=== PATIENT | female | born 1935 | race African-American/Black ===

== ENCOUNTER 2024-10-26 07:49 | Inpatient (IN) | payer MEDICARE, OTHER, SELFPAY ==
[2024-10-23] VITALS (14 sets, daily range): BP systolic 94–185; BP diastolic 64–102; BMI 22.0
--- NOTE | 2024-10-23 16:12 | PTCARENOTE ---
Patient having shooting pains in legs. States walking will alleviate pain. Ambulated around the unit x2 with 2 person assist. Legs feel better. Sitting in recliner awaiting procedure.
--- NOTE | 2024-10-23 18:57 | ITS.CL.PACE ---
Plating Department Helper - Pacemaker Implant
Pacemaker Implant
Procedure Report:
Primary Care Doctor: Rylee Haq DO
Primary Chief Lending Officer: Janusz Butts MD
Procedure Date: 10/23/2024
Name of procedure:
1. Placement of a single-chamber pacemaker with left bundle area pacing lead for conduction system pacing
2. Subclavian venography
History:
1. Patient is a very pleasant 89-year-old female with a past medical history significant for heart failure with preserved ejection fraction, hyperlipidemia, TIA, persistent likely permanent atrial fibrillation, chronic back pain with lumbar
stenosis status post laminectomy, and tachybradycardia syndrome.
2. Please refer to H&P for complete history.
Indication:
Symptomatic bradycardia
Tachybradycardia syndrome
3.3-second pauses associated with above
Recurrent syncope
Methods:
After informed consent was obtained, the patient was brought to the EP laboratory in a postabsorptive, nonsedated state. Peripheral IV access was established. Prophylactic antibiotics were administered prior to incision. Continuous ECG, blood
pressure, and pulse oximetry were initiated. Cardioversion patch electrodes were placed on the patient's chest and back. A grounding patch was applied to the skin. Sedation was administered by anesthesia services.
In order to define the extrathoracic portion of the subclavian vein and exclude significant venous obstruction or anomalous anatomy, subclavian venography was performed prior to the procedure. Using the patient's left peripheral IV, contrast was
injected and images were recorded. The left subclavian vein and SVC were found to be widely patent.
The left chest was prepared and draped in a sterile fashion. A time-out was performed. Local anesthesia was injected in the subcutaneous tissue in the infraclavicular area. An incision was made medial to the deltopectoral groove. The subcutaneous
tissue was dissected the level of the prepectoral fascia. A subcutaneous pocket was created. Under fluoroscopic guidance and with the assistance of the images from the venogram, venipuncture was made using micropuncture and modified Seldinger
technique. This was performed in the extrathoracic portion of the subclavian vein. Guidewire was passed and a peel-away sheath was placed, and used to advance lead into the circulation.
Fluoroscopy was used to determine likely anatomic site for left bundle branch pacing. The Medtronic C315 sheath was used to deliver the Medtronic 3830 Selectsecure pacing lead with the helix exposed just exposed from the sheath tip during continuous
monitoring when pacemapping the septum during gentle clockwise rotation to obtain a paced QRS morphology of a W pattern in lead V1. Once the suspected optimal site was identified, lead deployment was performed with several rapid rotations as paced
QRS morphology was intermittently monitored until a paced QRS complex in lead V1 demonstrated development of an R wave (qR or rSR). Unipolar pacing impedance dropped by approximately 200 ohms suggesting it had reached the left ventricular
subendocardial. Stable VEgm injury current is present throughout lead position and at end of case. Final unipolar pacing impedance is 960 Ohms. Unipolar pacing threshold is stable at 1.0 V @ 0.4 ms. The patient had pre-existing narrow QRS. Final
conduction system paced QRS complex duration is 97 ms, LVAT is 51 ms, and peak V5 -> peak V1 timing is 51 ms. The C315 sheath was slit under fluoroscopy ensuring lead position and stability.
The pocket was flushed with antibiotic solution and hemostasis was assured. The generator was connected to the lead and placed inside the pocket. The device was sutured to the fascia. Antibiotic envelope was used. Floseal was applied. The wound
was closed with 3 running layers of absorbable suture, and steri-strips were applied. Dressing applied over steri-strips in standard fashion.
Following the procedure, the patient was taken to the recovery area in stable condition. A chest x-ray to be obtained post procedure as routine.
Lead parameters and device programming:
- RV Lead (Medtronic, Model 3830, #[id number]): Sensing 5.5 mV, Pacing threshold 0.5 V at 0.4 ms, Imp 790 ohm
- Device: Medtronic, Model W1SR01 pacemaker (#[id number]), programmed VVIR 60�130
Conclusions:
1. Successful placement of a single-chamber pacemaker with conduction system pacing (LBBAP)
2. Subclavian venography
Recommendations:
1. Admit
2. Chest xray bipin thakurlink express in AM
3. IV antibiotics while the patient is admitted.
4. OK to resume home medications as indicated
5. Pressure dressing to be removed in AM, aquacell to remain until wound check
6. Follow-up will be arranged in the office in 7-10 days post-discharge
7. OK to resume OAC 10/26/2024 is patient/site stable
Demarcus Rodriguez DO
Clinical Cardiac Metal Hardener
cc: Rylee Haq DO; Janusz Butts MD
[2024-10-23] MEDS: COZAAR 50 MG PO (20:34)
[2024-10-23] MEDS: TYLENOL 650 MG PO (21:09)
[2024-10-23] MEDS: SEROQUEL PO (21:12)
[2024-10-23] MEDS: SEROQUEL 25 MG PO (21:56)
[2024-10-23] MEDS: NEURONTIN 200 MG PO (22:02)
[2024-10-23] MEDS: ANCEF 5 IV (22:02)
[2024-10-24] VITALS (17 sets, daily range): BP systolic 112–160; BP diastolic 53–105; PULSE 72; O2SAT 100; BMI 21.7
--- NOTE | 2024-10-24 01:30 | PTCARENOTE ---
Rec'd pt as a transfer from EP lab. Pt AAO*3, VSS, and in afib/vpaced rhythm on monitor. pt reported pain in legs and tylenol given as ordered. Pt oriented to unit. Pt and family updated at bedside. Pt and family aware of RUE restriction and
uses of immobilizer. RU chest wall CDI. Pt resting with call olvera in reach. Daughter remains at bedside with patient. Bed alarm on for safety.
[2024-10-24 03:38] LABS: Glucose - Point of Care 195 mg/dl (70-99)
--- NOTE | 2024-10-24 03:50 | W.PN.UPDATE ---
Update Note
Progress Note Update
Rapid response called.
RN reports patient found unresponsive to name or touch, responsive to pain full stimuli only. Patient has her eyes closed, unable to follow commands. noted leg movement. Stable VS, BS 195. Daughter at the bed side, reports she had similar episode on
Monday and didn't respond for 3-4 hours. EKG A-fib
Stroke alert called
RN reported to Neurologist. Neurologist gave verbal order to PIPELINE MAINTENANCE SUPERVISOR.
CT Head w/o contrast
CT Angio Head/Neck w Contrast
ABG stat.
labs
pacemaker placed 10/23
Hx of Dementia
Radiologist noticed results being negative for bleed (CT head) and no occlusion (CT Angio).
Dr. Moreno made aware in AM.
[2024-10-24 03:53] LABS: Hematocrit 38.1 % (37.0-47.0); Hemoglobin 12.4 g/dL (12.0-16.0); Mean Corp Hgb Conc. 32.5 g/dL (33.0-37.0); Mean Corpuscular Hgb 31.3 pg (27.0-31.0); Mean Corpuscular Volume 96.2 fL (81.0-99.0); Mean Platelet Volume 9.8 fL (7.4-10.4); Platelet Count 199 10^3/uL (130-400); Red Blood Cell Count 3.96 10^6/uL (4.20-5.40); Red Cell Dist. Width 13.7 % (11.5-14.5); White Blood Cell Count 6.3 10^3/uL (4.8-10.8)
[2024-10-24 04:03] LABS: Blood Urea Nitrogen 28 mg/dl (7-17); Carbon Dioxide 25 mmol/L (22-30); Chloride 102 mmol/L (98-107); Estimated Creatinine Clearance 25 ml/min; Glucose 176 mg/dl (70-99); Potassium 4.4 mmol/L (3.5-5.1); Sodium 140 mmol/L (135-145); eGFR 48.63
[2024-10-24 04:37] LABS: B.E. -0.2 mmol/L; HCO3 24.8 mmol/L (21-28); O2 Saturation % 98.2 % (94-98); PCO2 41 mmHg (32-35); PO2 103 mmHg (83-108); pH 7.39 (7.35-7.45)
--- NOTE | 2024-10-24 05:16 | RR ---
Addendum entered by Ad Schmitt RN 10/24/24 05:55:
03:32 -Initial assessment with pt being unresponsive.
03:35 - Rapid response initiated.
Original Note:
A Rapid Response was called on this patient, please see Rapid Response form.
RN came in room to assess pt. Pt on TELE monitor in Afib rhythm with pulse in the 80's before entering room. RN attempted to arouse pt for vitals signs. Pt was unresponsive to verbal commands or stimuli. RN gently rubbed pt shoulders, however pt
was still unresponsive to physical stimuli. RN immediately felt for radial and carotid pulses. Carotid pulse noted to be strong and palpable. Radial pulses noted to be strong and palpable. Sternal rub initiated by RN to arouse pt, however, pt
was still unresponsive to physical stimuli. At this time appropriate rapid response team was called. Once rapid response team was activated pt was still unresponsive to verbal and physical stimuli. Pt responsive to pain stimuli with muscle
contraction and twitching. Pt clenching pupils and unable to assess size and congruency.
Pt was previously assessed at 01:35. Pt found to be AAO*3 and following commands at this time.
During rapid response pt's daughter stated that 'pt has been found unresponsive in similar state at home for up to 3 hours.' RN previously did not receive this information in history or from report.
EKG, Vital signs, morning blood work, arterial blood gas, and blood sugar obtained. Pt taken to CT for imaging after being assessed by rapid response team. See rapid response form for full assessment.
Pt brought back to original room and unit. Pt now speaking/mumbling [place] language but still not able to follow commands or conversation.
Left upper chest wall remains with dressing CDI, right arm immobilizer in place. Pt resting with call olvera in reach, olvera alarm active, daughter at bedside, and on TELE monitor.
Plan of care ongoing.
[2024-10-24] MEDS: ANCEF 5 IV (05:37)
--- NOTE | 2024-10-24 07:59 | CON.NEURO ---
Addendum entered and electronically signed by Chioma Martínez MD 10/24/24 17:18:
Brain MRI if PPM is MRI compatible, when able
Original Note:
Consultation
Order
Date of Consultation: 10/24/24
Requesting Provider: Dipika Mike CRNP
Reason for Consult: Unresponsiveness, mental status change
Neurology Consultation Note.
HPI: This is an 89-year-old woman who presented to [facility] on 10-23-2024 for elective pacemaker placement.
Stroke alert was activated at 3:39 am today after the the patient was found unresponsive. VS at that time: 143/67, 78, 96% on room air, afebrile
Labs: Fingerstick�195, creatinine�1.1, normal sodium, PCO2-41.
According to patient's daughter she has experienced multiple 'fainting episodes', with the most recent one occurring before her pacemaker insertion. She has been unresponsive for short durations, with the longest episode lasting a couple of hours.
The patient's family reports that she has been forgetful since a fall and has had difficulty recovering from her back surgery in August,.
The patient has a history of depression which began approximately 12 years ago when her spouse developed dementia. She has been on medication since then, and her son is concerned about a potential addiction to Lorazepam. Ms Renner reports no
complaints. The patient reportedly has been seen at [facility] neurology and was diagnosed with essential tremor within the last 6 months.
According to patient's son Ms. Renner has been quite functional driving and cooking for herself up to June 2024. Her son has been helping with medication administration due to patient's hand tremor limitations over the last 6 months
PDMP:Lorazepam 0.5 Mg 30 tabs filled in on 10/07/2024
EKG(10/23/2024): A-fib
CT head wo contrast�diffuse atrophy
CTA head/neck�no LVO or significant stenosis
MAR: Seroquel 25 mg given on 10/23/24 at 21:56, gabapentin 200 mg given on 10/23/24 at 22:02
PMH: Dementia, A-Fib, SSS, HTN, CHF, MYRIAM
PSH: Lumbar spinal surgery (08/21/2024) PPM(10/23/2024), parathyroidectomy, bilateral cataract surgery
SH:lives with son, originally from [facility], speaks 3 languages, ambulates with a walker as needed, retired teacher, non-smoker, no history of excessive alcohol use
FH: Daughter�tremor
All: Lisinopril
ROS: Limited due to encephalopathy, cooperation.
General: Well developed. In no acute distress.
Cardio: Regular rate . Extremities are without cyanosis or edema.
Neuro:
Mental Status: Alert, oriented to person, 'Traum '. date of was incorrect. Impaired attention and comprehension. Follows simple requests intermittently. Intermittently keep her eyes closed not moving.
Cranial Nerves: Pupils are equally round, surgical. EOMs full. Blinks to threat bilaterally no ptosis. No nystagmus. Face symmetric. Preserved AU. No dysarthria.
Motor: Increased motor tone. All limbs are antigravity symptomatically purposefully
Reflexes: Bilateral grasp Limited exam due to increased motor tone
Sensory: Limited exam due to poor attention
Coordination: Intermittent bilateral resting tremor. Did not cooperate with dysmetria valuation
Gait: deferred
Assessment and Plan:
I. Multifactorial encephalopathy (vascular, toxic, neurodegenerative?.
II. Mood DO, NOS
III. Parkinsonism
-Fall precautions
-Psychiatry consult
-Brain MRI without myriam
-Routine EEG
-B12, TFTs
-Please obtain medical records from [facility] neurology
-Avoid benzodiazepines, anticholinergic medications
-Outpatient neuropsychological evaluation
-Will follow
I personally reviewed all radiology and labs along with past medical records pertinent to current medical problems. Total time spent in patient care is 60 minutes.
Thank you for allowing us to participate in the care of this patient. We will continue to follow. Please do not hesitate to contact us with any questions or concerns.
Subjective/Objective
Subjective Data
Date of Service: October 24, 2024
Objective Data
Vital Signs
Temp Pulse Resp BP Pulse Ox
36.3 C 89 20 143/68 96
10/24/24 07:22 10/24/24 05:45 10/24/24 07:22 10/24/24 05:30 10/24/24 07:22
Lab Results
10/24/24 03:43
10/24/24 03:43
Sodium 140 mmol/L (135-145) 10/24/24 03:43
Potassium 4.4 mmol/L (3.5-5.1) 10/24/24 03:43
BUN 28 mg/dl (7-17) H 10/24/24 03:43
Glucose 176 mg/dl (70-99) H 10/24/24 03:43
Calcium 9.0 mg/dl (8.4-10.2) 10/24/24 03:43
Patient Allergies
lisinopril Allergy (Verified 10/23/24 12:20)
Unknown
Medications
-
Active Medications
Generic Name Dose Route Start Last Admin
Trade Name Freq PRN Reason Stop Dose Admin
Acetaminophen 650 mg 10/23/24 21:00 10/23/24 21:09
Acetaminophen 325 Mg Tablet PO 11/20/24 20:59 650 mg
Q4HPRN PRN Administration
MILD PAIN
Furosemide 20 mg 10/24/24 08:00
Furosemide 20 Mg Tablet PO 11/21/24 07:59
DAILY KRYSTAL
Gabapentin 200 mg 10/23/24 22:00 10/23/24 22:02
Gabapentin 100 Mg Capsule PO 11/20/24 21:59 200 mg
HS KRYSTAL Administration
Losartan Potassium 50 mg 10/23/24 20:00 10/23/24 20:34
Losartan 50 Mg Tablet PO 11/20/24 19:59 50 mg
BID KRYSTAL Administration
Pt's Own ( 500 mg 10/23/24 22:00
Methocarbamol 500 Mg PO 11/20/24 21:59
Tablet) HS KRYSTAL
Paroxetine HCl 10 mg 10/24/24 08:00
Paroxetine 10 Mg Tablet PO 11/21/24 07:59
DAILY KRYSTAL
Quetiapine Fumarate 25 mg 10/23/24 22:00 10/23/24 21:56
Quetiapine 25 Mg Tablet PO 11/20/24 21:59 25 mg
HS KRYSTAL Administration
Sodium Chloride 0 flush 10/23/24 07:00
Sodium Chloride 0.9% (Flush) Syringe IV 11/20/24 06:59
PER PROTOCOL KRYSTAL
Home Medications
�Medication �Instructions �Recorded
apixaban 2.5 mg tablet (Eliquis) 2.5 mg PO BID 10/03/24
calcium carbonate 500 mg PO DAILY 10/03/24
furosemide 20 mg tablet 20 mg PO DAILY 10/03/24
gabapentin 100 mg capsule 200 mg PO HS 10/03/24
losartan 50 mg tablet 50 mg PO BID 10/03/24
methocarbamol 500 mg tablet 500 mg PO HS 10/03/24
multivitamin 1 tab PO NOON 10/03/24
paroxetine HCl 10 mg tablet 10 mg PO DAILY 10/03/24
acetaminophen 500 mg tablet 1,000 mg PO Q6H PRN pain 10/23/24
quetiapine 25 mg tablet (Seroquel) 25 mg PO HS 10/23/24
Vital Signs and Labs
-
Vital Signs and Labs:
Vital Signs
Temp Pulse Resp BP Pulse Ox
36.3 C 93 22 132/56 96
10/24/24 16:42 10/24/24 16:30 10/24/24 16:42 10/24/24 15:09 10/24/24 07:22
Lab Results
10/24/24 03:43
10/24/24 03:43
Sodium 140 mmol/L (135-145) 10/24/24 03:43
Potassium 4.4 mmol/L (3.5-5.1) 10/24/24 03:43
BUN 28 mg/dl (7-17) H 10/24/24 03:43
Glucose 176 mg/dl (70-99) H 10/24/24 03:43
Calcium 9.0 mg/dl (8.4-10.2) 10/24/24 03:43
Medications
-
Medications:
Generic Name Dose Route Start Last Admin
Trade Name Freq PRN Reason Stop Dose Admin
Acetaminophen 650 mg 10/23/24 21:00 10/23/24 21:09
Acetaminophen 325 Mg Tablet PO 11/20/24 20:59 650 mg
Q4HPRN PRN Administration
MILD PAIN
Furosemide 20 mg 10/24/24 08:00 10/24/24 12:03
Furosemide 20 Mg Tablet PO 11/21/24 07:59 20 mg
DAILY KRYSTAL Administration
Gabapentin 200 mg 10/23/24 22:00 10/23/24 22:02
Gabapentin 100 Mg Capsule PO 11/20/24 21:59 200 mg
HS KRYSTAL Administration
Losartan Potassium 50 mg 10/23/24 20:00 10/24/24 12:03
Losartan 50 Mg Tablet PO 11/20/24 19:59 50 mg
BID KRYSTAL Administration
Pt's Own ( 500 mg 10/23/24 22:00
Methocarbamol 500 Mg PO 11/20/24 21:59
Tablet) HS KRYSTAL
Paroxetine HCl 10 mg 10/24/24 08:00 10/24/24 12:03
Paroxetine 10 Mg Tablet PO 11/21/24 07:59 10 mg
DAILY KRYSTAL Administration
Quetiapine Fumarate 25 mg 10/23/24 22:00 10/23/24 21:56
Quetiapine 25 Mg Tablet PO 11/20/24 21:59 25 mg
HS KRYSTAL Administration
Sodium Chloride 0 flush 10/23/24 07:00
Sodium Chloride 0.9% (Flush) Syringe IV 11/20/24 06:59
PER PROTOCOL KRYSTAL
Home Medications
-
Home Medications
apixaban 2.5 mg tablet (Eliquis) 2.5 mg PO BID Blood Clot Prevention/Tx 10/03/24
calcium carbonate 500 mg PO DAILY Supplement 10/03/24
furosemide 20 mg tablet 20 mg PO DAILY Fluid Retention/Swelling 10/03/24
gabapentin 100 mg capsule 200 mg PO HS 10/03/24
losartan 50 mg tablet 50 mg PO BID Blood Pressure 10/03/24
methocarbamol 500 mg tablet 500 mg PO HS 10/03/24
multivitamin 1 tab PO NOON Supplement 10/03/24
paroxetine HCl 10 mg tablet 10 mg PO DAILY Mental Health/Anxiety 10/03/24
acetaminophen 500 mg tablet 1,000 mg PO Q6H PRN pain 10/23/24
quetiapine 25 mg tablet (Seroquel) 25 mg PO HS Mental Health/Anxiety 10/23/24
--- NOTE | 2024-10-24 09:05 | W.PN.CARDCBS ---
Addendum entered and electronically signed by Royal Caraballo MD 10/24/24 09:29:
Agree with ASSOCIATE PROFESSOR OF VIOLIN note and assessment
Agree with ASSOCIATE PROFESSOR OF VIOLIN plan
Patient seen and examined
Events of overnight noted with the rapid response called change in mental status. CT imaging performed and awaiting radiology result. Long discussion with the daughter at the bedside he was from [place] going over here precedent history of
significant decline in her change in mental status since her cervical spinal surgery approximately 2 to 3 months ago and some of these behaviors were noted prior to the pacemaker implantation yesterday by Dr. Awad. At times she is conversant in
her [place] language of [place] and has spoken some words in [place] to my team. When I saw her she was relatively somnolent and mildly arousable and had been that way for a few hours.
Exam:
Pacer site under bandage but clean dry and intact
Chest x-ray reviewed without pneumothorax
Appropriate ventricular pacing and sensing on monitor
Atrial fibrillation underlying
Impression:
Permanent Atrial fibrillation
Tachybradycardia syndrome
Acute change in mental status
TIA 2020
HTN
Hyperlipidemia
chronic HFpEF
Chronic back pain with lumbar laminectomy 09/08
post procedure delirium/hallucination
Plan:
Neuro consultation
Await radiology reading of the imaging
appears comfortable, speaking in both st helenian/[place]er answers some questions appropriately but then starts screaming
I suspect her dementia is somewhat advanced and will need neurology advertising consultant as well as social work nurse consult and help regarding and determining workup and needs
Check UA to r/o infectious source for confusion
site stable, CXR no PTX, tele AFib with occ Vpacing
Holding Eliquis until sat am
Keep immobilizer on today
CM consult
PT/OT eval
Incision check 1 week at [facility]
I would favor observing her another 24 hours prior to discharge so that we can get a formal neurologic consultation and assess any home needs for the patient and family
Original Note:
Today's Communication / Plan
-
post PPM, with post op unresponsiveness and confusion
Impression / Plan
-
Primary Care Doctor: Rylee Haq DO
Primary Movie Theater Usher: Janusz Butts MD
Name of procedure:
1. Placement of a single-chamber pacemaker with left bundle area pacing lead for conduction system pacing
2. Subclavian venography
89-year-old female with a past medical history significant for heart failure with preserved ejection fraction, hyperlipidemia, TIA, persistent likely permanent atrial fibrillation, chronic back pain with lumbar stenosis status post laminectomy, and
tachybradycardia syndrome.
Impression:
Permanent Atrial fibrillation
Tachybradycardia syndrome
Acute change in mental status
TIA 2019
HTN
Hyperlipidemia
chronic HFpEF
Chronic back pain with lumbar laminectomy 09/08
post procedure delirium/hallucination
Plan:
post single chamber PPM 10/23/24
overnight events noted, stroke alert called for unresponsiveness
preliminary CTA head/neck neg for bleed or occlusion
Neuro c/s this am
appears comfortable, speaking in both st helenian/[place] answers some questions appropriately but then starts screaming
unsure baseline dementia
Check UA to r/o infectious source for confusion
site stable, CXR no PTX, tele AFib with occ Vpacing
Holding Eliquis until sat am
Keep immobilizer on today
CM consult
PT/OT eval
Incision check 1 week at [facility]
continue to monitor closely, await Neuro input
Progress Note - Movie Theater Usher
Subjective
Date of Service: October 24, 2024
unable to assess with confusion
Objective
Labs:
10/24/24 03:43
10/24/24 03:43
Labs
Hgb 12.4 g/dL (12.0-16.0) 10/24/24 03:43
Hct 38.1 % (37.0-47.0) 10/24/24 03:43
Plt Count 199 10^3/uL (130-400) 10/24/24 03:43
Sodium 140 mmol/L (135-145) 10/24/24 03:43
Potassium 4.4 mmol/L (3.5-5.1) 10/24/24 03:43
BUN 28 mg/dl (7-17) H 10/24/24 03:43
Creatinine 1.1 mg/dL (0.6-1.0) H 10/24/24 03:43
Glucose 176 mg/dl (70-99) H 10/24/24 03:43
Vital Signs and I&O:
Vital Signs
Temp Pulse Resp BP Pulse Ox
97.4 F 89 20 143/68 96
10/24/24 07:22 10/24/24 05:45 10/24/24 07:22 10/24/24 05:30 10/24/24 07:22
Vital Signs
Temp Pulse Resp BP Pulse Ox
97.4 F 89 20 143 96
10/24/24 07:22 10/24/24 05:45 10/24/24 07:22 10/24/24 05:30 10/24/24 07:22
Intake & Output
10/22/24 10/23/24 10/24/24 10/25/24
06:59 06:59 06:59 06:59
Intake Total 1440 / 1440
Balance 1440 / 1440
Physical Exam
Physical Exam
NAD, AOx1-2, speaking in [place] hel[place], answers some simple questions appropriately
S1, S2, RRR
CTAB, non labored, no wheeze
SNTND bsx4
L CW dressing c/d/i, no HT, pressure dressing removed
[2024-10-24] MEDS: PAXIL 10 MG PO (12:03)
[2024-10-24] MEDS: LASIX 20 MG PO (12:03)
[2024-10-24] MEDS: COZAAR 50 MG PO ×2 (12:03→19:58)
--- NOTE | 2024-10-24 14:09 | PTCARENOTE ---
Pt w/ periods of delirium/dementia. Pt AAO to self. Pt w/ periods of drowsiness. Pt w/ short periods of lucidity. At times of lucidity, pt answers questions appropriately. Discussed plan of care w/ pt's daughter and son. VSS. Will monitor.
--- NOTE | 2024-10-24 14:29 | PTCARENOTE ---
Pt w/o urine output. Bladder scan showed 323 ml of urine in her bladder. At a lucid moment, pt stated that she was going to urinate. Mattie calero initiated, at family request as pt now very somnolent and received lasix. DRILLING FOREMAN aware. Will monitor.
--- NOTE | 2024-10-24 15:05 | CM ---
CM following for DC planning needs.
Met w/ patient at bedside to complete initial assessment. Pt. sleeping soundly. Met w/ son/Royal and dtr./Marissa for collateral information.
Pt. normally resides w/ son, Royal in a private [address] home w/ 2 KAIT. Functionally, patient was indep. prior to her back surgery in 08/2024. She was driving and cooking her meals as of summer 2023.
Family detailed a number of hospital presentations since Aug.
Following back surgery 08/2024, patient was DC'ed to [facility] SNF for x1 wk. Pt. returned to home w/ [facility]. VN following SNF admission.
10/08- presented to ED for delirium; was DCed to home from ED
10/09- presented to ED again for delirium; was admitted and stayed in hospital until 10/15; dx: UTI. Was DC'ed to home w/ [facility]. VN TAMEKA
10/18- presented to ED again for delirium; was DC'ed to home from ED
10/22- presented to ED again; was DC'ed to home from ED
At baseline, patient is ambulatory.
Son resides w/ her. 4 other children; no one else resides closeby but stay occasionally to assist PRN.
Family thinks that patient requires SNF placement prior to return home.
Would not wish to return to [facility], [email or web address]; [facility] are alternative options. Will initiate referrals once PT eval completed.
Even though patient is Recovery level of care, she has had a 3 MN hospitalization in the past 30 d.
Will cont. to follow.
--- NOTE | 2024-10-24 17:00 | PTCARENOTE ---
Pt's delirium seemed to improve after physical therapy. Pt continues to be forgetful, yet more lucid. Pt able to hold good conversation. Will monitor.
[2024-10-24 17:06] LABS: Urine Albumin Trace (Neg - Trace); Urine Bilirubin Negative (Negative); Urine Character Clear (Clear); Urine Color Yellow; Urine Glucose Negative (Negative); Urine Ketone Negative (Negative); Urine Leukocyte Negative (Negative); Urine Nitrite Negative (Negative); Urine Occult Blood Negative (Negative); Urine Urobilinogen Negative (Neg - 1+)
--- NOTE | 2024-10-24 18:58 | EEGC.RPT ---
Continuous EEG Report
Recording
Start Date of Data Reviewed: 10/24/24
Done with Video Recording: Yes
Electrocardiogram: Unremarkable
Report
�
��TECHNICAL REMARKS:��This is a technically satisfactory eighteen channel record employing 21 disc electrodes applied according to a measured international 10-20 electrode placement system.��There were no significant technical difficulties.��The
study was done on a Quartix System.
�
CLINICAL HISTORY: This is an 9-by[id number]-year-old woman with encephalopathy. This study was requested to look for epileptiform abnormalities.
STUDY DURATION: 25 min,�57 secs
REPORT: �At the onset of the EEG, the patient is awake.. The background activity consists of 7�8 hz, impersistent, posteriorly dominant, moderate amplitude, symmetric, and rhythmic activity. Intermittent generalized, 2-3 Hz, 30-50 uV polymorphic
delta activity was seen.� Stepwise intermittent photic stimulation did not induce additional abnormalities. Hyperventilation was not performed. Drowsiness is characterized by low amplitude mixed frequency activity, decreased eye blinking, and muscle
artifact. No epileptiform activity was seen.
�
IMPRESSION: �This is an abnormal awake and drowsy EEG recorded in altered mental status due to a moderate generalized slowing. This findings indicate diffuse cerebral dysfunction, nonspecific in terms of etiology.�
�
[2024-10-24 20:32] LABS: TSH Reflex To Free T4 0.55 uIU/ml (0.47-4.68)
[2024-10-24 20:52] LABS: Vitamin B12 870 pg/ml (239-931)
[2024-10-24] MEDS: TYLENOL 650 MG PO (21:45)
[2024-10-24] MEDS: SEROQUEL 25 MG PO (21:46)
[2024-10-24] MEDS: NEURONTIN 200 MG PO (21:46)
[2024-10-25] VITALS (21 sets, daily range): BP systolic 97–184; BP diastolic 56–136; BMI 21.7
[2024-10-25] MEDS: TYLENOL 650 MG PO ×3 (02:04→21:33)
--- NOTE | 2024-10-25 02:58 | PTCARENOTE ---
Rec'd pt at change of shift. Pt AAO*3, in V-paced rhythm with underlying afib, and VSS. Pt complained of leg pain and Tylenol given as ordered. Pt also reported relief with walking. Pt ambulated around the unit with staff assistance and rolling
walker. Pt and family updated on plan of care, Pt maintained on bed alarm for safety. Pt resting with call olvera in reach and daughter at bedside. Plan of care ongoing.
[2024-10-25] MEDS: TYLENOL PO (06:13)
--- NOTE | 2024-10-25 09:05 | CM ---
Addendum entered by ROMY Saldaña 10/25/24 17:08:
Bed avail. at [facility]. I did alert the son at bedside. He was to discuss w/ his sister.
I [facility] w/ collection systems [phone]. Bed avail. tomorrow, 10/26 if stable.
I then went to meet with patient again at bedside. Dtr. present. Pt. was not responsible and Rapid was called. Was unable to discuss admission to nursing facility given the emergent situation.
Will need to FU on Monday at this time for placement.
Addendum entered by ROMY Saldaña 10/25/24 15:10:
Received responses on the following:
[facility]- no avail. beds.
[facility]no avail[facility] beds
No response from [facility].
Expanded referrals to include: [facility], [facility], Rehab at [facility].
Printed out listing of all facilities within a 10 and then a 15 mile radius of patient's home.
Met w/ dtr. and son at bedside. We reviewed all referrals that have been made. Although family prefers the initial 3 facilities, they are agreeable to expanding search.
group home plan is to return to home w/ son.
Will cont. efforts to arrange SNF placement.
Barrier to DC may be episode of delirium + Recovery status.
Original Note:
Noted PT-OT evaluations.
Referrals made to:
[facility]
Will await responses.
--- NOTE | 2024-10-25 10:06 | W.PN.CARDCBS ---
Addendum entered and electronically signed by Royal Caraballo MD 10/25/24 12:41:
Much more alert today
Patient seen and examined
AF on tele and appropriate V sense/pace.
exam:
much more alert
conversant in zambian and east timorese
sat up and asked to be talked to directly
cor irregular
remainder of exam as per PRELOAD SUPERVISOR note
89-year-old female with a past medical history significant for heart failure with preserved ejection fraction, hyperlipidemia, TIA, persistent likely permanent atrial fibrillation, chronic back pain with lumbar stenosis status post laminectomy, and
tachybradycardia syndrome.
Impression:
Permanent Atrial fibrillation
Tachybradycardia syndrome
Acute change in mental status
TIA 2020
HTN
Hyperlipidemia
chronic HFpEF
Chronic back pain with lumbar laminectomy 09/08
post procedure delirium/hallucination
Plan:
post single chamber PPM 10/23/24
mental status much improved today, sitting out of bed, answers questions appropriately
appreciate neuro input - prefer to avoid MRI for at least 4-6 weeks after new pacemaker, plan for outpt
UA neg, TSH and B12 normal
Psych c/s today to evaluate meds
Pacer site stable, tele AFib with occ Vpacing
Holding Eliquis resume sat am
PT/OT recommended SNF
CM working on bed placement, hopefully today or tomorrow
Incision check 1 week at [facility]
Original Note:
Today's Communication / Plan
-
Appreciate neuro c/s, Psych c/s today for medication adjustments
SNF placement when bed available
Impression / Plan
-
Primary Care Doctor: Rylee Haq,
Primary Mechanical Tech: Janusz Butts MD
Name of procedure:
1. Placement of a single-chamber pacemaker with left bundle area pacing lead for conduction system pacing
2. Subclavian venography
89-year-old female with a past medical history significant for heart failure with preserved ejection fraction, hyperlipidemia, TIA, persistent likely permanent atrial fibrillation, chronic back pain with lumbar stenosis status post laminectomy, and
tachybradycardia syndrome.
Impression:
Permanent Atrial fibrillation
Tachybradycardia syndrome
Acute change in mental status
TIA 2019
HTN
Hyperlipidemia
chronic HFpEF
Chronic back pain with lumbar laminectomy 09/08
post procedure delirium/hallucination
Plan:
post single chamber PPM 10/23/24
mental status much improved today, sitting out of bed, answers questions appropriately
appreciate neuro input - prefer to avoid MRI for at least 4-6 weeks after new pacemaker, possibly plan for outpt
UA neg, TSH and B12 normal
Psych c/s today to evaluate meds
Pacer site stable, tele AFib with occ Vpacing
Holding Eliquis resume sat am
PT/OT recommended SNF
CM working on bed placement, hopefully today or tomorrow
Incision check 1 week at [facility]
Progress Note - Mechanical Tech
Subjective
Date of Service: October 25, 2024
denies pain, sob
Objective
Labs:
10/24/24 03:43
10/24/24 03:43
Labs
Hgb 12.4 g/dL (12.0-16.0) 10/24/24 03:43
Hct 38.1 % (37.0-47.0) 10/24/24 03:43
Plt Count 199 10^3/uL (130-400) 10/24/24 03:43
Sodium 140 mmol/L (135-145) 10/24/24 03:43
Potassium 4.4 mmol/L (3.5-5.1) 10/24/24 03:43
BUN 28 mg/dl (7-17) H 10/24/24 03:43
Creatinine 1.1 mg/dL (0.6-1.0) H 10/24/24 03:43
Glucose 176 mg/dl (70-99) H 10/24/24 03:43
Vital Signs and I&O:
Vital Signs
Temp Pulse Resp BP Pulse Ox
97.6 F 63 18 146/73 97
10/25/24 07:00 10/25/24 03:32 10/25/24 07:00 10/25/24 03:32 10/25/24 07:00
Vital Signs
Temp Pulse Resp BP Pulse Ox
97.6 F 63 18 146/73 97
10/25/24 07:00 10/25/24 03:32 10/25/24 07:00 10/25/24 03:32 10/25/24 07:00
Intake & Output
10/23/24 10/24/24 10/25/24 10/26/24
06:59 06:59 06:59 06:59
Intake Total 1440 / 1440 680 / 680
Output Total 150 / 150
Balance 1440 / 1440 530 / 530
Physical Exam
Physical Exam
NAD< AOX2
S1, S2, irreg irreg
CTAB, non labored
SNTND bsx4
L CW dressing c/d/i no HT, pressure dressing removed
[2024-10-25] MEDS: COZAAR 50 MG PO ×2 (10:19→20:45)
[2024-10-25] MEDS: LASIX PO (10:20)
--- NOTE | 2024-10-25 11:00 | CON.MD ---
Consultation - Medical
-
patient seen chart reviewed. discussed w nursing and with son who was at bedside. patient is an 89 year old woman who underwent ppm placement this admit. she was noted afterward to seem unresponsive but she had not had a stroke and no cause found
ultimately and she returned to usual lof. nursing reported that it almost seemed like she was meditating. when i saw her today she did sit with her eyes closed but it was clear that she followed pretty much everything her son and i said. in fact
although she seemed almost to be dozing she was quite alert and answered all of my ? re orientation appropriately. she denied that she was depressed. she is sometimes anxious and it was for anxiety around the time h that she began taking paxil
and initially ativan o.25 mg which is not now being prescribed. it was just dc'ed and son worries about a wd syndrome although this is a very small dose. son does report mother experienced what he called delirium at times he felt due to tramadol
which she no longer takes and perhaps erratic heart rate prior to ppm implantation. the patient sleeps well when not in pain....she had lamicnectomy and leg pain is still an issue. he feels she deteriorated b/c pain after the back surgery which was
recent although he does see that as getting better too. this was 11.24. patient is NOT suicidal. there is nothing to suggest psychosis. she does have dry mouth presumably from medication effect (paxil and seroquel)
past psych hx no hospitalizations see above re meds
medical hx see above re current medical hx 'parathryoid' in chart not clear whether surgery. hx cataractectomy chf tia hld bun 28 cr 1.1 tsh nl glu 176 b12 and tsh nl
pending mri and eeg ordered cat brain atrophy ctahead and neck see report
fh non contributory
substance abuse none
social resides w son. had six kids one seven grands enjoys gardening and cooking
mse alert ox3 was very still w eyes closed but quite attentive. speech soft normal rate thought process goal oriented no psychosis mood is neutral no si affect appropriate intelligence average insight judgment ok
dx history of recent tme seemingly resolved hx of anxiety in the past
recommendations son is concerned re stopping ativan o.25 mg. this is not usually a big issue as it is a small dose. should simply be monitored. he also is concerned re sedating effects of seroquel and the side effect of paxil which is very
anticholinergic. he feels these were ordered years ago when father went into nh and perhaps she does not need them. suggested halving dose and monitoring for about a month. if she seems stable would dc. would have him consult with pcp. patient's
mental status today seemed pretty good to me. i did not do formal testing which could be done in an out pt setting if concerns re mental status recur psych will sign off
[2024-10-25] MEDS: PAXIL PO (11:17)
[2024-10-25] MEDS: PAXIL 5 MG PO (11:27)
[2024-10-25 17:08] LABS: Glucose - Point of Care 98 mg/dl (70-99)
[2024-10-25] MEDS: ATIVAN 1 MG IV (17:30)
--- NOTE | 2024-10-25 18:13 | HPS.HSE ---
Family Physician
-
Family Physician: Rylee Haq
Chief Complaint
-
tremors/unresponsiveness
History of Present Illness
Patient unable to provide history. History obtained from family (son Royal and daughter Marissa), records, and report from providers (nurse, Drug Safety Coordinator, Neurologist, rapid response team).
89F Essential tremors HFpEF, HLD, TIA, persistent vs permanent afib on Eliquis, chronic back pain, lumbar stenosis laminectomy, tachybrady syndrome, here for pacemaker placement 10/23/24. Hospital course complicated with repeat Rapid Response calls
for episodes of unresponsiveness, shaking, unclear etiology. No acute findings CT Head or CTA Head and Neck. EEG was negative for seizure activity. 10/25/24 as noted in nurse documentation Patient Care Note, patient had become unresponsive while
attempting to get to bedside commode. Patient was placed back in bed and second rapid response this hospitalization was called. During the event patient exhibited tremors each extremity with varying severity, intermittent twitching LUE.
Extremities seemed relatively supple despite shaking. Patient also had persistent conjugate gaze left sided during the event. Ativan was attempted, 0.25 mg IV twice then 0.5 mg IV for a total 1 mg. Patient symptomatically improved after 0.5 mg,
was alert coherent conversant following simple commands. Conjugate gaze had also resolved. Hypertensive, vital signs were otherwise stable throughout event, on room air, no significant desaturation noted. Entire event lasted approx 30 min.
Discussed with primary Cardiology and patient was transferred to Hospitalist service for further evaluation and management. On further discussion with family at bedside, patient was noted to be having 'sundowning' issues since her back surgery Nov
2023. Prior to surgery family reported good ADLs functional driving and cooking for herself. Unresponsive episodes were also noted prior to this hospitalization but family also notes episodes seem to have become more severe within the last week,
especially while she's here.
Medical History
Past Medical History
Past Medical History: Reports Other (as above)
Past Surgical History: Reports Other (as above)
Social History
Unable to obtain full social history at this time due to: Dementia
Family History
Family History: Not pertinent (reviewed)
Allergies / Home Medications
Allergies reflects when Allergies were last updated in [facility].
Home Medications with original date entered in [facility]
Allergy/Medication List:
Allergies
Allergy/AdvReac Type Severity Reaction Status Date / Time
lisinopril Allergy Unknown Verified 10/23/24 12:20
Home Medications
apixaban 2.5 mg tablet (Eliquis) 2.5 mg PO BID Blood Clot Prevention/Tx 10/03/24
calcium carbonate 500 mg PO DAILY Supplement 10/03/24
furosemide 20 mg tablet 20 mg PO DAILY Fluid Retention/Swelling 10/03/24
gabapentin 100 mg capsule 200 mg PO HS 10/03/24
losartan 50 mg tablet 50 mg PO BID Blood Pressure 10/03/24
methocarbamol 500 mg tablet 500 mg PO HS 10/03/24
multivitamin 1 tab PO NOON Supplement 10/03/24
paroxetine HCl 10 mg tablet 10 mg PO DAILY Mental Health/Anxiety 10/03/24
acetaminophen 500 mg tablet 1,000 mg PO Q6H PRN pain 10/23/24
quetiapine 25 mg tablet (Seroquel) 25 mg PO HS Mental Health/Anxiety 10/23/24
Review of Systems
-
Unable to obtain full review of systems at this time due to: Dementia
Physical Exam
Vital Signs
Vital Signs
Temp Pulse Resp BP Pulse Ox
97.7 F 72 16 156/68 95
10/25/24 15:00 10/25/24 15:30 10/25/24 15:00 10/25/24 15:01 10/25/24 15:00
Physical Exam
General: Other (as below)
Laboratory Results
-
10/24/24 03:43
10/24/24 03:43
Laboratory Results
pH 7.39 (7.35-7.45) 10/24/24 04:32
pCO2 41 mmHg (32-35) H 10/24/24 04:32
pO2 103 mmHg (83-108) 10/24/24 04:32
HCO3 24.8 mmol/L (21-28) 10/24/24 04:32
Impression/Plan
-
Physical Exam
General: No pallor, cyanosis, or jaundice.
HEENT: Normocephalic atraumatic, initially fixed left sided conjugate gaze was noted during rapid response event, this since resolved with resolution unresponsiveness EOMI
NECK: Supple. No JVD Carotid Bruits
RESPIRATORY: Lungs clear to auscultation. No crackles wheezes stridor
CVS: Irregularly Irregular. No murmur, rub or gallop.
ABDOMEN: Soft, non-tender. No distension. BS+/normal.
EXTREMITIES: No peripheral cyanosis or edema.
MORTGAGE SERVICING SPECIALIST: following resolution unresponsiveness patient was alert conversant coherent to an extent (some confusion noted) and following simple commands
IMPRESSION:
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 Hospital course complicated with repeat Rapid Response
calls for episodes of unresponsiveness, shaking, unclear etiology. No acute findings CT Head or CTA Head and Neck. EEG was negative for seizure activity. Patient evaluated by Psychiatry and Neurology consults. Following 2nd rapid response,
patient was transferred from Cardiology to Hospitalist service for further evaluation and management.
PLAN:
#Episodes Unresponsiveness/Shaking unclear etiology, suspected Dementia Delirium
#History Depression/Depression
As per discussion with Neurology, Low suspicion seizure activity, possible hyperactive delirium (treatable with ativan but also carries a risk of worsening delirium overall)
Would continue to hold scheduled ativan (reportedly was on 0.25 mg HS previously, very low dose, unlikely to trigger withdrawal sz's, has been off this medication for days)
Psych eval appreciated
Neuro eval appreciated hold paroxetine and Seroquel given concern possible Lewy Body Dementia
PT/OT eval appreciated SNF rehab but patient may do better in a familiar event Home with 08/05 care if possible.
#Tachybrady syndrome s/p ppm
Cardio eval appreciated
cont care as per Cardio
#persistent vs permanent afib
Eliquis to resume 10/26/24 morning as per Cardio
#HFpEF
appears euvolemic at this time
cont home Lasix
#HTN
cont home Losartan
#Lumbar stenosis Laminectomy Aug 2024
cont home Gabapentin
Methocarbamol not given here (patient's own med), would also consider discontinuing given anticholinergic concerns possible contribution delirium as above
Full Code
I spent a total of 80 minutes with the patient or on the floor. More than 50% of this time involved counseling and coordination of care.
--- NOTE | 2024-10-25 18:21 | RR ---
A Rapid Response was called on this patient, please see Rapid Response form.
--- NOTE | 2024-10-25 18:21 | PTCARENOTE ---
pt attempted to get to bsc went unresponsive and was placed back into bed. RN was called to room, sternal rubbed pt. rn checked pulse. pt continued to be afib/paced on the monitor. rapid response called. bp was 166/76, notified dr. coleman/
hospitalist. Ativan given at bedside per order, see documentation. after about a half hour, pt started to arouse. pt was able to answer who, what and where she is. family educated at bedside. call olvera in place. bed alarm continues to be on for
safety.
--- NOTE | 2024-10-25 18:38 | W.PN.NEURO.1 ---
Today's Communication / Plan
-
.
Subjective/Objective
Subjective Data
Date of Service: October 25, 2024
Neurology follow-up note.
According to patient's daughter her mom had an episode presented with behavioral arrest with associated eye closure after standing when she was transferred to a commode. Her symptoms lasted for several minutes before she was assisted to bed
VS during the event: 166/121, 83, fingerstick�98.
Ms. Renner received lorazepam for reported gaze preference(unclear side, dose is not documented in MAR). Ms. Renner has had ongoing bilateral upper and lower extremity resting tremor.
Routine EEG (10/24/2024)-generalized slowing, no epileptiform activity
PMH: Dementia, A-Fib, SSS, HTN, CHF, MYRIAM
PSH: Lumbar spinal surgery (08/21/2024) PPM(10/23/2024), parathyroidectomy, bilateral cataract surgery
SH:lives with son, originally from [facility], speaks 3 languages, ambulates with a walker as needed, retired teacher, non-smoker, no history of excessive alcohol use
FH: Daughter�tremor
All: Lisinopril
ROS: Limited due to encephalopathy, cooperation.
No lip injury.
General: Restless, trying to get out of the bed
Cardio: Regular rate . Extremities are without cyanosis or edema.
Neuro:
Mental Status: Awake, does not attend. Intermittent dysarthric speech
Cranial Nerves:
Motor: Increased motor tone. All limbs are antigravity symptomatically purposefully
Reflexes: Bilateral grasp Limited exam due to increased motor tone
Sensory: Limited exam due to poor attention
Coordination: bilateral resting tremor.
Reflexes: Bilateral grasp
Gait: deferred
Assessment and Plan:
I. Behavioral arrest multifactorial encephalopathy
II. Multifactorial encephalopathy, hyperactive delirium
III. Parkinsonism, LBD?
-Please obtain orthostatic vital signs.
-Psychiatry consult
-Please check CBC, metabolic panel,
-Please obtain medical records from [facility] neurology
-Avoid benzodiazepines, dopamine blockers, anticholinergic medications
-The case was discussed with patient's children and medical personnel
I personally reviewed all radiology and labs along with past medical records pertinent to current medical problems. Total time spent in patient care is 45 minutes.
Thank you for allowing us to participate in the care of this patient. We will continue to follow. Please do not hesitate to contact us with any questions or concerns.
Objective Data
Vital Signs
Temp Pulse Resp BP Pulse Ox
36.5 C 76 16 131/56 95
10/25/24 15:00 10/25/24 18:15 10/25/24 15:00 10/25/24 18:15 10/25/24 15:00
Lab Results
10/24/24 03:43
10/24/24 03:43
Sodium 140 mmol/L (135-145) 10/24/24 03:43
Potassium 4.4 mmol/L (3.5-5.1) 10/24/24 03:43
BUN 28 mg/dl (7-17) H 10/24/24 03:43
Glucose 176 mg/dl (70-99) H 10/24/24 03:43
Calcium 9.0 mg/dl (8.4-10.2) 10/24/24 03:43
Vitamin B12 870 pg/ml (239-931) 10/24/24 03:43
Patient Allergies
lisinopril Allergy (Verified 10/23/24 12:20)
Unknown
Vital Signs and Labs
-
Vital Signs and Labs:
Vital Signs
Temp Pulse Resp BP Pulse Ox
36.5 C 76 16 131/56 95
10/25/24 15:00 10/25/24 18:15 10/25/24 15:00 10/25/24 18:15 10/25/24 15:00
Lab Results
10/24/24 03:43
10/24/24 03:43
Sodium 140 mmol/L (135-145) 10/24/24 03:43
Potassium 4.4 mmol/L (3.5-5.1) 10/24/24 03:43
BUN 28 mg/dl (7-17) H 10/24/24 03:43
Glucose 176 mg/dl (70-99) H 10/24/24 03:43
Calcium 9.0 mg/dl (8.4-10.2) 10/24/24 03:43
Vitamin B12 870 pg/ml (239-931) 10/24/24 03:43
Medications
-
Medications:
Generic Name Dose Route Start Last Admin
Trade Name Freq PRN Reason Stop Dose Admin
Acetaminophen 650 mg 10/23/24 21:00 10/25/24 11:30
Acetaminophen 325 Mg Tablet PO 11/20/24 20:59 650 mg
Q4HPRN PRN Administration
MILD PAIN
Apixaban 2.5 mg 10/26/24 08:00
Apixaban (Eliquis) 2.5 Mg Tablet PO 11/23/24 07:59
BID KRYSTAL
Furosemide 20 mg 10/24/24 08:00 10/25/24 10:20
Furosemide 20 Mg Tablet PO 11/21/24 07:59 Not Given
DAILY KRYSTAL
Gabapentin 200 mg 10/23/24 22:00 10/24/24 21:46
Gabapentin 100 Mg Capsule PO 11/20/24 21:59 200 mg
HS KRYSTAL Administration
Losartan Potassium 50 mg 10/23/24 20:00 10/25/24 10:19
Losartan 50 Mg Tablet PO 11/20/24 19:59 50 mg
BID KRYSTAL Administration
Pt's Own ( 500 mg 10/23/24 22:00
Methocarbamol 500 Mg PO 11/20/24 21:59
Tablet) HS KRYSTAL
Paroxetine HCl 5 mg 10/25/24 11:14 10/25/24 11:27
Paroxetine 10 Mg Tablet PO 11/22/24 11:13 5 mg
DAILY KRYSTAL Administration
Quetiapine Fumarate 12.5 mg 10/25/24 11:00
Quetiapine 25 Mg Tablet PO 11/20/24 21:59
HS KRYSTAL
Sodium Chloride 0 flush 10/23/24 07:00
Sodium Chloride 0.9% (Flush) Syringe IV 11/20/24 06:59
PER PROTOCOL KRYSTAL
Home Medications
-
Home Medications
apixaban 2.5 mg tablet (Eliquis) 2.5 mg PO BID Blood Clot Prevention/Tx 10/03/24
calcium carbonate 500 mg PO DAILY Supplement 10/03/24
furosemide 20 mg tablet 20 mg PO DAILY Fluid Retention/Swelling 10/03/24
gabapentin 100 mg capsule 200 mg PO HS 10/03/24
losartan 50 mg tablet 50 mg PO BID Blood Pressure 10/03/24
methocarbamol 500 mg tablet 500 mg PO HS 10/03/24
multivitamin 1 tab PO NOON Supplement 10/03/24
paroxetine HCl 10 mg tablet 10 mg PO DAILY Mental Health/Anxiety 10/03/24
acetaminophen 500 mg tablet 1,000 mg PO Q6H PRN pain 10/23/24
quetiapine 25 mg tablet (Seroquel) 25 mg PO HS Mental Health/Anxiety 10/23/24
--- NOTE | 2024-10-25 18:59 | W.PN.UPDATE ---
Update Note
Progress Note Update
Rapid response called this afternoon for an episode of change in mental status and altered sensorium. She was unresponsive and found by nursing and a rapid response was called. Daughter and brother were at the bedside. They asked whether this was
Ativan withdrawal causing the symptoms. Vital sign assessment including oxygenation blood pressure and pulse demonstrated relatively stable vital signs. I took a history from the brother and it sounds like she has had some dementia type symptoms
with ing for 3 to 6 months. For 3 weeks she has had waxing waning mental status and for approximately 1 week she has had unresponsiveness spells. She is is the second spell she has had here in the hospital with rapid responses called for
each. The post procedure Monday evening rapid response led to imaging, EEG, neurology consultation, psychiatry consultation, PT OT, social media specialist evaluations. When I saw her this morning she was awake and conversant in both Estonian and Albanian
but then this afternoon had another change in mental status. I immediately called the internal medicine�hospitalist team when I was notified by nursing about the rapid response. Although I was in the office I came over to evaluate patient and
hospitalist team with Dr. Mayer was already at the bedside. He did give her some Ativan which appeared to improve her sensorium and internal medicine and neurology teams were at the bedside evaluating patient. I did discuss with daughter and son
that we will continue our workup and it is hard to know timeframe of improvement. First I do believe we need to make a diagnosis for these unresponsive episodes and workup is ongoing.
We will continue to follow the patient closely from a cardiology perspective and internal medicine team will except the patient as primary attending with neurology, psychiatry, and cardiology consultation. With regards to her pacemaker there is
appropriate ventricular sensing and pacing on telemetry and we were preparing to start oral anticoagulation tomorrow morning as she is in permanent atrial fibrillation. There was no bleeding on cranial imaging from Monday evening and I will
defer to the primary team with regards to further workup and imaging. Unless there is a contraindication we will plan to start oral anticoagulation tomorrow morning October 26.
I also made Dr. Butts her outpatient oil filters inspector aware of events of the hospitalization.
[2024-10-25] MEDS: NEURONTIN 200 MG PO (20:45)
[2024-10-25] MEDS: SEROQUEL 12.5 MG PO (20:45)
[2024-10-26] VITALS (7 sets, daily range): BP systolic 119–185; BP diastolic 47–83; BMI 21.8
[2024-10-26 05:22] LABS: Hemoglobin 11.4 g/dL (12.0-16.0); Mean Corp Hgb Conc. 32.6 g/dL (33.0-37.0); Mean Corpuscular Hgb 31.8 pg (27.0-31.0); Mean Corpuscular Volume 97.5 fL (81.0-99.0); Mean Platelet Volume 10.3 fL (7.4-10.4); Platelet Count 172 10^3/uL (130-400); Red Blood Cell Count 3.59 10^6/uL (4.20-5.40); Red Cell Dist. Width 14.1 % (11.5-14.5); White Blood Cell Count 5.8 10^3/uL (4.8-10.8)
[2024-10-26 05:27] LABS: APTT 31.8 Sec (23.4-35.0)
--- NOTE | 2024-10-26 05:32 | PTCARENOTE ---
patient slept on and off overnight. daughter at the bedside. bed alarm for safety. neuro assessment wax and weans. lucid, appropriately conversation at times. speaking bengali/creole at times. patient keeps eyes closed at times. will follow commands.
ambulating with the walker; standby assist-uncooperative with directions. Afib on tele with pacing, 70s-90s. bp stable. L chest site CDI. reinforced activity restrictions to patient and family. call olvera within reach.
[2024-10-26 05:40] LABS: ALT (SGPT) 18 U/L (0-35); AST (SGOT) 42 U/L (14-36); Albumin 3.6 g/dl (3.5-5.0); Alkaline Phosphatase 81 U/L (38-126); Blood Urea Nitrogen 26 mg/dl (7-17); Calcium 8.9 mg/dl (8.4-10.2); Carbon Dioxide 31 mmol/L (22-30); Chloride 103 mmol/L (98-107); Estimated Creatinine Clearance 30 ml/min; Glucose 96 mg/dl (70-99); Magnesium 2.4 mg/dl (1.6-2.3); Phosphorus 3.7 mg/dl (2.5-4.5); Potassium 4.1 mmol/L (3.5-5.1); Sodium 141 mmol/L (135-145); Total Bilirubin 0.6 mg/dl (0.2-1.3); Total Protein 6.2 g/dl (6.3-8.2); eGFR > 60.00
--- NOTE | 2024-10-26 07:40 | W.PN.HOSP.TC ---
Today's Communication/Plan
-
limit external stimuli as possible
start keppra and avoid benzo, antipsychotics, anticholinergic medications as per Neuro
IVF gentle hydration if not eating, ok to dc if able to tolerate oral diet
Pain control, lidocaine patches lower back, increased gabapentin, scheduled Tylenol Q4HWA
Resume Eliquis as per Cardio
Assessment / Plan
Assessment / Plan
Physical Exam
General: No pallor, cyanosis, or jaundice.
HEENT: Normocephalic atraumatic
NECK: Supple. No JVD Carotid Bruits
RESPIRATORY: Lungs clear to auscultation. No crackles wheezes stridor
CVS: Irregularly Irregular. No murmur, rub or gallop.
ABDOMEN: Soft, non-tender. No distension. BS+/normal.
EXTREMITIES: No peripheral cyanosis or edema.
BASKET OPERATOR: Fluctuating mental status throughout day
IMPRESSION:
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 Hospital course complicated with repeat Rapid Response
calls for episodes of unresponsiveness, shaking, unclear etiology. No acute findings CT Head or CTA Head and Neck. EEG was negative for seizure activity. Patient evaluated by Psychiatry and Neurology consults. Following 2nd rapid response,
patient was transferred from Cardiology to Hospitalist service for further evaluation and management.
PLAN:
#Episodes Unresponsiveness/Shaking unclear etiology, suspect Dementia Delirium exacerbated by Medications (benzos, antipsychotics, anticholinergic)
#History Depression/Depression
Per discussion with patient's son Royal, sports psychologist, confusion episodes first started following laminectomy lumbar stenosis Aug 2024, around the same time patient was started on methocarbamol (very anticholinergic, in combination with pt's home
medications paroxetine and bedtime ativan, suspect polypharmacy likely triggered confusion episodes/delirium)
As per discussion with Neurology, Low suspicion seizure activity, possible hyperactive delirium (treatable with ativan but also carries a risk of worsening delirium overall)
Would continue to hold scheduled ativan (reportedly was on 0.25 mg HS previously, very low dose, unlikely to trigger withdrawal sz's, has been off this medication for a few days)
Psych eval appreciated
Neuro eval appreciated hold paroxetine and Seroquel given concern possible Lewy Body Dementia, started on low dose Keppra for possible sz d/o
PT/OT eval appreciated SNF rehab but patient may do better in a familiar event Home with / care if possible.
Limit external stimuli as much as possible.
#Tachybrady syndrome s/p ppm
Cardio eval appreciated
#persistent vs permanent afib
Eliquis resumed, cont
#HFpEF
appears euvolemic at this time
Given poor oral intake d/t confusion/encephalopathy/delirium, Lasix discontinued, monitor off
#HTN
cont home Losartan
#Lumbar stenosis Laminectomy Aug 2024
Possible pain contributing to delirium
cont home Gabapentin dose increased to 300 mg TID as per Neuro
Methocarbamol not given here (patient's own med), would also consider discontinuing given anticholinergic concerns possible contribution delirium as above
Notably, the start of methocarbamol also coincides with the start of patient's 'ing'- started following Laminectomy as per patient's son Royal
Scheduled Tylenol Q4HWA
Lidocaine patches lower back
Full Code
GI ppx Protonix
Discussed with patient's daughter Marissa and patient's son Royal
I spent a total of 50 minutes with the patient or on the floor. More than 50% of this time involved counseling and coordination of care.
Anticipated Discharge: 24 - 48 hours
Subjective/Interval History
-
Date of Service: October 26, 2024
Intermittent episodes confusion unresponsiveness agitation persists. Overall seems to be improving as day progresses however. See nurse patient care note 10/26/24 18:57
Objective Data
-
Labs:
Laboratory Results
10/26/24
04:56
WBC 5.8
Hgb 11.4 L
Hct 35.0 L
Plt Count 172
APTT 31.8
Sodium 141
Potassium 4.1
Chloride 103
Carbon Dioxide 31 H
BUN 26 H
Creatinine 0.9
Glucose 96
Calcium 8.9
Total Bilirubin 0.6
AST 42 H
ALT 18
Alkaline Phosphatase 81
Vital Signs:
Vital Signs
Temp Pulse Resp BP Pulse Ox
97.8 F 88 16 136/66 99
10/26/24 04:46 10/26/24 05:15 10/26/24 07:31 10/26/24 04:46 10/26/24 07:31
I&O
10/25/24 10/26/24 10/27/24
06:59 06:59 06:59
Intake Total 680 / 680 490 / 490
Output Total 150 / 150
Balance 530 / 530 490 / 490
--- NOTE | 2024-10-26 09:35 | W.PN.CARDCBS ---
Today's Communication / Plan
-
Appreciate IM input
Appreciate psychiatry input
Appreciate neurology input
Pacemaker stable
Resuming oral anticoagulation today
Discussed with daughter the plan at bedside
Outpatient wound check is already made
We will sign off
Workup ongoing for her neurologic status and likely SNF at discharge
Impression / Plan
-
Primary Care Doctor: Rylee Haq DO
Primary Livestock Buyer: Janusz Butts MD
Name of procedure:
1. Placement of a single-chamber pacemaker with left bundle area pacing lead for conduction system pacing
2. Subclavian venography
89-year-old female with a past medical history significant for heart failure with preserved ejection fraction, hyperlipidemia, TIA, persistent likely permanent atrial fibrillation, chronic back pain with lumbar stenosis status post laminectomy, and
tachybradycardia syndrome.
Impression:
Permanent Atrial fibrillation
Tachybradycardia syndrome
Acute change in mental status
TIA 2020
HTN
Hyperlipidemia
chronic HFpEF
Chronic back pain with lumbar laminectomy 09/08
post procedure delirium/hallucination
Plan:
post single chamber PPM 10/23/24 with endocardial lead
Events of the last 24 hours noted. Second rapid response yesterday in the evening and I evaluated the patient at bedside with internal medicine and neurology.
Ongoing discussions with family regarding her preimplant neurologic status and post implant options
Appreciate internal medicine�hospitalist team and Dr. Mayer's evaluation at bedside and they are now the primary service
appreciate neuro input - prefer to avoid MRI for at least 4-6 weeks after new pacemaker, possibly plan for outpt
UA neg, TSH and B12 normal
Appreciate psychiatry consult
Pacer site stable, tele AFib with occ Vpacing.
Resuming Eliquis today
PT/OT recommended SNF and options are being researched
CM working on bed placement, hopefully early next week
Incision check 1 week at [facility] which is already arranged
We will sign off for now please call with further questions if there is any other cardiology related issues that we can answer for medical teams were for the family
Progress Note - Livestock Buyer
Subjective
Date of Service: October 26, 2024
Events noted
Objective
Labs:
10/26/24 04:56
10/26/24 04:56
Labs
Hgb 11.4 g/dL (12.0-16.0) L 10/26/24 04:56
Hct 35.0 % (37.0-47.0) L 10/26/24 04:56
Plt Count 172 10^3/uL (130-400) 10/26/24 04:56
APTT 31.8 Sec (23.4-35.0) 10/26/24 04:56
Sodium 141 mmol/L (135-145) 10/26/24 04:56
Potassium 4.1 mmol/L (3.5-5.1) 10/26/24 04:56
BUN 26 mg/dl (7-17) H 10/26/24 04:56
Creatinine 0.9 mg/dL (0.6-1.0) 10/26/24 04:56
Glucose 96 mg/dl (70-99) 10/26/24 04:56
Vital Signs and I&O:
Vital Signs
Temp Pulse Resp BP Pulse Ox
97.8 F 63 16 119/52 99
10/26/24 04:46 10/26/24 07:31 10/26/24 07:31 10/26/24 07:31 10/26/24 07:31
Vital Signs
Temp Pulse Resp BP Pulse Ox
97.8 F 63 16 119/52 99
10/26/24 04:46 10/26/24 07:31 10/26/24 07:31 10/26/24 07:31 10/26/24 07:31
Intake & Output
10/24/24 10/25/24 10/26/24 10/27/24
06:59 06:59 06:59 06:59
Intake Total 1440 / 1440 680 / 680 490 / 490
Output Total 150 / 150
Balance 1440 / 1440 530 / 530 490 / 490
Physical Exam
Physical Exam
Physical Exam
General: More awake and alert
Neck: supple. no meningeal signs. normal psoterior pharynx
Heart: Left-sided pacer site clean dry and intact. Cor irregularly irregular
Lungs: no acute respiratory distress. clear bilaterally
Abdomen: normal bowel sounds. not tender. no CVAT
Neuro: Neurologic issue stable with waxing and waning sensorium
Skin: no rash
Psychiatric: Psychiatric issues stable
Extremities: no edema. no calf tenderness. negative homans. good distal pulses
[2024-10-26] MEDS: LASIX PO (09:48)
[2024-10-26] MEDS: OFIRMEV 100 IV (11:08)
[2024-10-26] MEDS: LIDOCAINE 4% PATCH 2 PATCH TOPICAL (11:30)
[2024-10-26] MEDS: PROTONIX IV 40 MG IV (11:30)
[2024-10-26] MEDS: NSS (PRESERVATIVE FREE) 10 ML IV (11:30)
[2024-10-26] MEDS: TORADOL 15 MG IV (11:31)
[2024-10-26] MEDS: NSS 1000 IV (12:35)
[2024-10-26] MEDS: ELIQUIS 2.5 MG PO ×2 (13:20→22:18)
[2024-10-26] MEDS: COZAAR 50 MG PO ×2 (13:20→22:18)
--- NOTE | 2024-10-26 16:05 | W.PN.NEURO.1 ---
Today's Communication / Plan
-
.
Subjective/Objective
Subjective Data
Date of Service: October 26, 2024
Neurology follow-up note.
Routine EEG (10/24/2024)-generalized slowing, no epileptiform activity.
Ms. Renner endorses bilateral lower leg pain.
According to medical personnel patient was not responding to his tactile wrap at 9:30 AM today. Her blood pressure at that time was 178/78. The patient was given Seroquel 12.5 mg on 10/25/24 at 20:45.
She was reportedly awake and verbal prior to the morning episode.
PMH: Dementia, A-Fib, SSS, HTN, CHF, MYRIAM
PSH: Lumbar spinal surgery (08/21/2024) PPM(10/23/2024), parathyroidectomy, bilateral cataract surgery
SH:lives with son, originally from [facility], speaks 3 languages, ambulates with a walker as needed, retired teacher, non-smoker, no history of excessive alcohol use
FH: Daughter�tremor
All: Lisinopril
ROS: Positive for leg pain
General: Restless, trying to get out of the bed
Cardio: Regular rate . Extremities are without cyanosis or edema.
Neuro:
Mental Status: Awake, oriented to name. Poor attention. Fluctuating mood. Perseverates.
Cranial Nerves:
Motor: Increased motor tone. All limbs are antigravity symptomatically purposefully
Reflexes: Bilateral grasp Limited exam due to increased motor tone
Sensory: Limited exam due to poor attention
Coordination: bilateral resting tremor.
Reflexes: Bilateral grasp
Gait: deferred
Tenderness on the lower leg tactile stimuli
Assessment and Plan:
I. Behavioral arrest multifactorial encephalopathy
II. Multifactorial encephalopathy, hyperactive delirium
III. Parkinsonism, LBD?
IV. AFib off AC
-Please obtain lower extremity venous Doppler ultrasound (the patient has not had Eliquis over the last 3 days)
-Psychiatry consult
-Start low-dose of Keppra
-Routine EEG
-Please page neurology service if additional episodes of unresponsiveness should occur
-Please obtain medical records from [facility] neurology
-Avoid benzodiazepines, dopamine blockers, anticholinergic medications
-The case was discussed with patient's children and medical personnel
I personally reviewed all radiology and labs along with past medical records pertinent to current medical problems. Total time spent in patient care is 45 minutes.
Thank you for allowing us to participate in the care of this patient. We will continue to follow. Please do not hesitate to contact us with any questions or concerns
Objective Data
Vital Signs
Temp Pulse Resp BP Pulse Ox
36.6 C 82 16 185/83 99
10/26/24 04:46 10/26/24 13:20 10/26/24 07:31 10/26/24 13:20 10/26/24 07:31
Lab Results
10/26/24 04:56
10/26/24 04:56
APTT 31.8 Sec (23.4-35.0) 10/26/24 04:56
Sodium 141 mmol/L (135-145) 10/26/24 04:56
Potassium 4.1 mmol/L (3.5-5.1) 10/26/24 04:56
BUN 26 mg/dl (7-17) H 10/26/24 04:56
Glucose 96 mg/dl (70-99) 10/26/24 04:56
Calcium 8.9 mg/dl (8.4-10.2) 10/26/24 04:56
Phosphorus 3.7 mg/dl (2.5-4.5) 10/26/24 04:56
Vitamin B12 870 pg/ml (239-931) 10/24/24 03:43
Patient Allergies
lisinopril Allergy (Verified 10/23/24 12:20)
Unknown
Vital Signs and Labs
-
Vital Signs and Labs:
Vital Signs
Temp Pulse Resp BP Pulse Ox
36.6 C 82 16 185/83 99
10/26/24 04:46 10/26/24 13:20 10/26/24 07:31 10/26/24 13:20 10/26/24 07:31
Lab Results
10/26/24 04:56
10/26/24 04:56
APTT 31.8 Sec (23.4-35.0) 10/26/24 04:56
Sodium 141 mmol/L (135-145) 10/26/24 04:56
Potassium 4.1 mmol/L (3.5-5.1) 10/26/24 04:56
BUN 26 mg/dl (7-17) H 10/26/24 04:56
Glucose 96 mg/dl (70-99) 10/26/24 04:56
Calcium 8.9 mg/dl (8.4-10.2) 10/26/24 04:56
Phosphorus 3.7 mg/dl (2.5-4.5) 10/26/24 04:56
Vitamin B12 870 pg/ml (239-931) 10/24/24 03:43
Medications
-
Medications:
Generic Name Dose Route Start Last Admin
Trade Name Freq PRN Reason Stop Dose Admin
Acetaminophen 650 mg 10/23/24 21:00 10/25/24 21:33
Acetaminophen 325 Mg Tablet PO 11/20/24 20:59 650 mg
Q4HPRN PRN Administration
MILD PAIN
Apixaban 2.5 mg 10/26/24 08:00 10/26/24 13:20
Apixaban (Eliquis) 2.5 Mg Tablet PO 11/23/24 07:59 2.5 mg
BID KRYSTAL Administration
Gabapentin 200 mg 10/26/24 16:00
Gabapentin 100 Mg Capsule PO 11/23/24 15:59
TID KRYSTAL
Hydralazine HCl 5 mg 10/26/24 11:00
Hydralazine 20 Mg/Ml Vial IV 11/23/24 10:59
Q4HPRN PRN
SBP>160 or DBP>100
Sodium Chloride 1,000 mls @ 70 mls/hr 10/26/24 12:15 10/26/24 12:35
Nss IV 1,000 mls
[id number] KRYSTAL Administration
Levetiracetam 500 mg 10/26/24 20:00
Levetiracetam 500 Mg Regular Release Tablet PO 11/23/24 19:59
BID KRYSTAL
Lidocaine 2 patch 10/26/24 11:00 10/26/24 11:30
Lidocaine 4% Topical Patch TOPICAL 11/23/24 10:59 2 patch
DAILY KRYSTAL Administration
Protocol
Losartan Potassium 50 mg 10/23/24 20:00 10/26/24 13:20
Losartan 50 Mg Tablet PO 11/20/24 19:59 50 mg
BID KRYSTAL Administration
Pantoprazole Sodium 40 mg 10/26/24 12:00 10/26/24 11:30
Pantoprazole Sodium 40 Mg/10 Ml Vial IV 11/23/24 11:59 40 mg
DAILY KRYSTAL Administration
Paroxetine HCl 5 mg 10/25/24 11:14 10/25/24 11:27
Paroxetine 10 Mg Tablet PO 11/22/24 11:13 5 mg
DAILY KRYSTAL Administration
Patch Removal 0 patch 10/26/24 20:00
Remove Lidocaine Patch REMOVE 11/23/24 19:59
DAILY@2000 KRYSTAL
Quetiapine Fumarate 12.5 mg 10/25/24 11:00 10/25/24 20:45
Quetiapine 25 Mg Tablet PO 11/20/24 21:59 12.5 mg
HS KRYSTAL Administration
Sodium Chloride 0 flush 10/23/24 07:00
Sodium Chloride 0.9% (Flush) Syringe IV 11/20/24 06:59
PER PROTOCOL KRYSTAL
Sodium Chloride 10 ml 10/26/24 12:00 10/26/24 11:30
Sodium Chloride 0.9% (Preservative Free) 10 Ml Vial IV 11/23/24 11:59 10 ml
DAILY KRYSTAL Administration
Home Medications
-
Home Medications
apixaban 2.5 mg tablet (Eliquis) 2.5 mg PO BID Blood Clot Prevention/Tx 10/03/24
calcium carbonate 500 mg PO DAILY Supplement 10/03/24
furosemide 20 mg tablet 20 mg PO DAILY Fluid Retention/Swelling 10/03/24
gabapentin 100 mg capsule 200 mg PO HS Neurological Condition 10/03/24
losartan 50 mg tablet 50 mg PO BID Blood Pressure 10/03/24
methocarbamol 500 mg tablet 500 mg PO HS Muscle Spasms 10/03/24
multivitamin 1 tab PO NOON Supplement 10/03/24
paroxetine HCl 10 mg tablet 10 mg PO DAILY Mental Health/Anxiety 10/03/24
acetaminophen 500 mg tablet 1,000 mg PO Q6H PRN pain 10/23/24
quetiapine 25 mg tablet (Seroquel) 25 mg PO HS Mental Health/Anxiety 10/23/24
[2024-10-26] MEDS: NEURONTIN 300 MG PO ×2 (17:06→22:18)
[2024-10-26 17:58] LABS: Erythrocyte Sed Rate 16 mm/hour (0-20)
[2024-10-26 18:05] LABS: Iron 55 ug/dl (37-170); Uric Acid 4.7 mg/dl (2.5-6.2)
[2024-10-26 18:11] LABS: C-Reactive Protein < 5.00 mg/L (0.0-10.00)
--- NOTE | 2024-10-26 18:57 | PTCARENOTE ---
pt continues to be afib/paced throughout the day. vss. neuro assessment wax and weaned throughout the day. neuro and hospitalist both aware and came to bedside to assess pt. pt now lucid and having an appropriate conversation. at times pt can speak
romansh/creole at times. patient keeps eyes closed at times. will follow commands. ambulating with the walker. pt was more awake for dinner and ate her food and took po medications. family at bedside visiting. pt and family educated on plan of care
and verbalized understanding. call olvera within reach. bed alarm in place.
[2024-10-26] MEDS: KEPPRA 500 MG PO (22:18)
[2024-10-26] MEDS: TYLENOL 650 MG PO (22:18)
[2024-10-26] MEDS: NEURONTIN PO (22:19)
--- NOTE | 2024-10-26 22:35 | PTCARENOTE ---
received patient at the change of shift. awake, alert, oriented to self and time. eating dinner with her daughter at the bedside. no signs of aspiration. confused conversations. pleasant. bed alarm for safety. afib on tele with [id number]. L
chest site CDI/aquacel intact. HS medications given with no issues. turned patient in bed for comfort. discussed plan with daughter; verbalized understanding. call olvera within reach.
[2024-10-27] VITALS (8 sets, daily range): BP systolic 105–156; BP diastolic 48–64; BMI 22.2
[2024-10-27] MEDS: TYLENOL PO ×4 (01:42→17:52)
[2024-10-27 04:55] LABS: Hematocrit 35.3 % (37.0-47.0); Hemoglobin 11.5 g/dL (12.0-16.0); Mean Corp Hgb Conc. 32.6 g/dL (33.0-37.0); Mean Corpuscular Hgb 31.7 pg (27.0-31.0); Mean Corpuscular Volume 97.2 fL (81.0-99.0); Mean Platelet Volume 10.3 fL (7.4-10.4); Platelet Count 191 10^3/uL (130-400); Red Blood Cell Count 3.63 10^6/uL (4.20-5.40); Red Cell Dist. Width 14.2 % (11.5-14.5); White Blood Cell Count 4.9 10^3/uL (4.8-10.8)
[2024-10-27 05:12] LABS: ALT (SGPT) 16 U/L (0-35); AST (SGOT) 35 U/L (14-36); Albumin 3.4 g/dl (3.5-5.0); Alkaline Phosphatase 75 U/L (38-126); Blood Urea Nitrogen 23 mg/dl (7-17); Calcium 8.6 mg/dl (8.4-10.2); Carbon Dioxide 31 mmol/L (22-30); Chloride 102 mmol/L (98-107); Estimated Creatinine Clearance 25 ml/min; Glucose 98 mg/dl (70-99); Magnesium 2.3 mg/dl (1.6-2.3); Phosphorus 4.4 mg/dl (2.5-4.5); Potassium 4.3 mmol/L (3.5-5.1); Sodium 139 mmol/L (135-145); Total Bilirubin 0.6 mg/dl (0.2-1.3); Total Protein 5.9 g/dl (6.3-8.2); eGFR 48.63
--- NOTE | 2024-10-27 06:55 | W.PN.HOSP.TC ---
Today's Communication/Plan
-
limit external stimuli as possible, AM routine lab work discontinued
cont keppra and avoid benzo, antipsychotics, anticholinergic medications as per Neuro
gentle IVF hydration for now pending consistent improvement in oral intake
Pain control, lidocaine patches lower back, gabapentin, scheduled Tylenol Q4HWA
cont Eliquis
Assessment / Plan
Assessment / Plan
Physical Exam
General: No pallor, cyanosis, or jaundice.
HEENT: Normocephalic atraumatic
NECK: Supple. No JVD Carotid Bruits
RESPIRATORY: Lungs clear to auscultation. No crackles wheezes stridor
CVS: Irregularly Irregular. No murmur, rub or gallop.
ABDOMEN: Soft, non-tender. No distension. BS+/normal.
EXTREMITIES: No peripheral cyanosis or edema.
STOCK PREPARATION SUPERVISOR: Fluctuating mental status throughout day
IMPRESSION:
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 Hospital course complicated with repeat Rapid Response
calls for episodes of unresponsiveness, shaking, unclear etiology. No acute findings CT Head or CTA Head and Neck. EEG was negative for seizure activity. Patient evaluated by Psychiatry and Neurology consults. Following 2nd rapid response,
patient was transferred from Cardiology to Hospitalist service for further evaluation and management.
PLAN:
#Episodes Unresponsiveness/Shaking unclear etiology, suspect Dementia Delirium exacerbated by Medications (benzos, antipsychotics, anticholinergic)
#History Depression/Depression
Per discussion with patient's son Royal, carport erector, confusion episodes first started following laminectomy lumbar stenosis Aug 2024, around the same time patient was started on methocarbamol (very anticholinergic, in combination with pt's home
medications paroxetine and bedtime ativan, suspect polypharmacy likely triggered confusion episodes/delirium)
As per discussion with Neurology, Low suspicion seizure activity, possible hyperactive delirium (treatable with ativan but also carries a risk of worsening delirium overall)
Would continue to hold scheduled ativan (reportedly was on 0.25 mg HS previously, very low dose, unlikely to trigger withdrawal sz's, has been off this medication for a few days)
Psych eval appreciated
Neuro eval appreciated hold paroxetine and Seroquel given concern possible Lewy Body Dementia, started on low dose Keppra for possible sz d/o
PT/OT eval appreciated SNF rehab but patient may do better in a familiar event Home with 24/7 care if possible.
Limit external stimuli as much as possible.
cont IVF gentle hydration for now pending consistent improvement in oral intake/alertness
#Tachybrady syndrome s/p ppm
Cardio eval appreciated
#persistent vs permanent afib
Eliquis resumed, cont
#HFpEF
appears euvolemic at this time
Given poor oral intake d/t confusion/encephalopathy/delirium, Lasix discontinued, monitor off
daily weights I/O
#HTN
cont home Losartan
#Lumbar stenosis Laminectomy Aug 2024
Possible pain contributing to delirium
cont home Gabapentin dose increased to 300 mg TID as per Neuro
Methocarbamol not given here (patient's own med), recommend discontinuing given anticholinergic concerns possible contribution delirium as above
Notably, the start of methocarbamol also coincides with the start of patient's ''- started following Laminectomy as per patient's son Royal
Scheduled Tylenol Q4HWA
Lidocaine patches lower back
Full Code
GI ppx Protonix
Discussed with patient's daughter Marissa and patient's son Royal
I spent a total of 50 minutes with the patient or on the floor. More than 50% of this time involved counseling and coordination of care.
Anticipated Discharge: 24 - 48 hours
Subjective/Interval History
-
Date of Service: October 27, 2024
Seen and examined at bedside in morning, no acute distress, sleeping. Daughter Marissa at bedside. Fluctuating mental status throughout the day. Notably patient's mental status alertness appears to improve as the day progresses, very lethargic
poorly responsive (unsafe for oral intake) at the beginning of day but becomes more alert awake, though confused, by the Afternoon (able to tolerate oral meds and diet by then).
Objective Data
-
Labs:
Laboratory Results
10/27/24
04:22
WBC 4.9
Hgb 11.5 L
Hct 35.3 L
Plt Count 191
Sodium 139
Potassium 4.3
Chloride 102
Carbon Dioxide 31 H
BUN 23 H
Creatinine 1.1 H
Glucose 98
Calcium 8.6
Total Bilirubin 0.6
AST 35
ALT 16
Alkaline Phosphatase 75
Vital Signs:
Vital Signs
Temp Pulse Resp BP Pulse Ox
97.6 F 65 18 119/54 99
10/27/24 04:22 10/26/24 22:15 10/27/24 04:22 10/26/24 22:15 10/27/24 04:22
I&O
10/25/24 10/26/24 10/27/24
06:59 06:59 06:59
Intake Total 680 / 680 490 / 490 490 / 490
Output Total 150 / 150
Balance 530 / 530 490 / 490 490 / 490
[2024-10-27] MEDS: NEURONTIN PO (09:00)
[2024-10-27] MEDS: NSS (PRESERVATIVE FREE) 10 ML IV (09:34)
[2024-10-27] MEDS: PROTONIX IV 40 MG IV (09:34)
[2024-10-27] MEDS: NSS 1000 IV ×2 (11:42→23:51)
[2024-10-27] MEDS: COZAAR 50 MG PO ×2 (13:30→19:54)
[2024-10-27] MEDS: TYLENOL 650 MG PO ×2 (13:31→19:54)
[2024-10-27] MEDS: NEURONTIN 300 MG PO ×2 (13:31→19:55)
[2024-10-27] MEDS: KEPPRA 500 MG PO ×2 (13:31→19:55)
[2024-10-27] MEDS: LIDOCAINE 4% PATCH 2 PATCH TOPICAL (13:32)
[2024-10-27] MEDS: ELIQUIS 2.5 MG PO ×2 (13:32→19:55)
--- NOTE | 2024-10-27 15:56 | W.PN.NEURO.1 ---
Today's Communication / Plan
-
.
Subjective/Objective
Subjective Data
Date of Service: October 27, 2024
Neurology follow-up note.
No acute events overnight. No recurrent spells of unresponsiveness are reported. Ms. Renner inquires why she has difficulties with weight gain despite the fact that she had lumbar laminectomy.
She states that her leg and back pain has improved since increase of gabapentin.
PMH: Dementia, A-Fib, SSS, HTN, CHF, MYRIAM
PSH: Lumbar spinal surgery (08/21/2024) PPM(10/23/2024), parathyroidectomy, bilateral cataract surgery
SH:lives with son, originally from [facility], speaks 3 languages, ambulates with a walker as needed, retired teacher, non-smoker, no history of excessive alcohol use
FH: Daughter�tremor
All: Lisinopril
ROS: Positive for leg pain
General: In no acute distress
Cardio: Regular rate . Extremities are without cyanosis or edema.
Neuro:
Mental Status: Awake, oriented to self, year, months. Mildly. Attention. Increased processing time. Nonfluent. No hemineglect. Follows simple requests.
Cranial Nerves: Orthophoric primary gaze. Extraocular movements are intact. Blinks to threat bilaterally. No facial weakness. Hearing is impaired no dysarthria or dysphonia.
Motor: Increased motor tone. All limbs are antigravity symptomatically purposefully
Reflexes: Bilateral grasp Limited exam due to increased motor tone
Sensory: Limited exam due to poor attention
Coordination: bilateral resting tremor.
Reflexes: Bilateral grasp
Gait: deferred
Tenderness on the lower leg tactile stimuli
Assessment and Plan:
I. Multifactorial encephalopathy, significantly improved.
II. 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
III. Parkinsonism, LBD?
IV. A-Fib
-Seizure and delirium precautions
-Continue Keppra 500 mg twice daily with plan for continuous outpatient EEG
-Avoid benzodiazepines, dopamine blockers, anticholinergic medications
-Brain MRI in 8 weeks (PPM is MRI compatible).
-Outpatient neurology follow-up
-The case was discussed with patient's son and daughter
-Please recall neurology service with any questions or concerns.
I personally reviewed all radiology and labs along with past medical records pertinent to current medical problems. Total time spent in patient care is 45 minutes.
Thank you for allowing us to participate in the care of this patient. Please do not hesitate to contact us with any questions or concerns
Objective Data
Vital Signs
Temp Pulse Resp BP Pulse Ox
36.3 C 60 20 140/55 100
10/27/24 11:19 10/27/24 11:45 10/27/24 11:19 10/27/24 13:30 10/27/24 11:31
Lab Results
10/27/24 04:22
10/27/24 04:22
APTT 31.8 Sec (23.4-35.0) 10/26/24 04:56
Sodium 139 mmol/L (135-145) 10/27/24 04:22
Potassium 4.3 mmol/L (3.5-5.1) 10/27/24 04:22
BUN 23 mg/dl (7-17) H 10/27/24 04:22
Glucose 98 mg/dl (70-99) 10/27/24 04:22
Calcium 8.6 mg/dl (8.4-10.2) 10/27/24 04:22
Phosphorus 4.4 mg/dl (2.5-4.5) 10/27/24 04:22
Vitamin B12 870 pg/ml (239-931) 10/24/24 03:43
Patient Allergies
lisinopril Allergy (Verified 10/23/24 12:20)
Unknown
Vital Signs and Labs
-
Vital Signs and Labs:
Vital Signs
Temp Pulse Resp BP Pulse Ox
36.4 C 65 16 133/73 97
10/28/24 08:00 10/28/24 09:45 10/28/24 08:00 10/28/24 09:16 10/28/24 08:00
APTT 31.8 Sec (23.4-35.0) 10/26/24 04:56
Sodium 139 mmol/L (135-145) 10/27/24 04:22
Potassium 4.3 mmol/L (3.5-5.1) 10/27/24 04:22
BUN 23 mg/dl (7-17) H 10/27/24 04:22
Glucose 98 mg/dl (70-99) 10/27/24 04:22
Calcium 8.6 mg/dl (8.4-10.2) 10/27/24 04:22
Phosphorus 4.4 mg/dl (2.5-4.5) 10/27/24 04:22
Vitamin B12 870 pg/ml (239-931) 10/24/24 03:43
Medications
-
Medications:
Generic Name Dose Route Start Last Admin
Trade Name Freq PRN Reason Stop Dose Admin
Acetaminophen 650 mg 10/26/24 20:00 10/28/24 06:02
Acetaminophen 325 Mg Tablet PO 11/23/24 19:59 650 mg
Q4HWA KRYSTAL Administration
Apixaban 2.5 mg 10/26/24 08:00 10/28/24 07:22
Apixaban (Eliquis) 2.5 Mg Tablet PO 11/23/24 07:59 2.5 mg
BID KRYSTAL Administration
Gabapentin 300 mg 10/26/24 22:00 10/28/24 07:21
Gabapentin 300 Mg Capsule PO 11/23/24 21:59 300 mg
TID KRYSTAL Administration
Hydralazine HCl 5 mg 10/26/24 11:00
Hydralazine 20 Mg/Ml Vial IV 11/23/24 10:59
Q4HPRN PRN
SBP>160 or DBP>100
Sodium Chloride 1,000 mls @ 70 mls/hr 10/27/24 11:45 10/27/24 23:51
Nss IV 1,000 mls
[id number] KRYSTAL Administration
Levetiracetam 500 mg 10/26/24 20:00 10/28/24 07:21
Levetiracetam 500 Mg Regular Release Tablet PO 11/23/24 19:59 500 mg
BID KRYSTAL Administration
Lidocaine 2 patch 10/26/24 11:00 10/28/24 07:20
Lidocaine 4% Topical Patch TOPICAL 11/23/24 10:59 2 patch
DAILY KRYSTAL Administration
Protocol
Losartan Potassium 50 mg 10/23/24 20:00 10/28/24 07:22
Losartan 50 Mg Tablet PO 11/20/24 19:59 50 mg
BID KRYSTAL Administration
Pantoprazole Sodium 40 mg 10/26/24 12:00 10/28/24 07:22
Pantoprazole Sodium 40 Mg/10 Ml Vial IV 11/23/24 11:59 40 mg
DAILY KRYSTAL Administration
Patch Removal 0 patch 10/26/24 20:00 10/27/24 20:01
Remove Lidocaine Patch REMOVE 11/23/24 19:59 1 patch
DAILY@2000 KRYSTAL Administration
Sodium Chloride 0 flush 10/23/24 07:00
Sodium Chloride 0.9% (Flush) Syringe IV 11/20/24 06:59
PER PROTOCOL KRYSTAL
Sodium Chloride 10 ml 10/26/24 12:00 10/28/24 07:22
Sodium Chloride 0.9% (Preservative Free) 10 Ml Vial IV 11/23/24 11:59 10 ml
DAILY KRYSTAL Administration
Home Medications
-
Home Medications
apixaban 2.5 mg tablet (Eliquis) 2.5 mg PO BID Blood Clot Prevention/Tx 10/03/24
calcium carbonate 500 mg PO DAILY Supplement 10/03/24
furosemide 20 mg tablet 20 mg PO DAILY Fluid Retention/Swelling 12/19/24
gabapentin 100 mg capsule 200 mg PO HS Neurological Condition 10/03/24
losartan 50 mg tablet 50 mg PO BID Blood Pressure 10/03/24
methocarbamol 500 mg tablet 500 mg PO HS Muscle Spasms 10/03/24
multivitamin 1 tab PO NOON Supplement 10/03/24
paroxetine HCl 10 mg tablet 10 mg PO DAILY Mental Health/Anxiety 10/03/24
acetaminophen 500 mg tablet 1,000 mg PO Q6H PRN pain 10/23/24
quetiapine 25 mg tablet (Seroquel) 25 mg PO HS Mental Health/Anxiety 10/23/24
--- NOTE | 2024-10-27 18:03 | PTCARENOTE ---
Addendum entered by Kayleigh Garcia RN 10/27/24 19:17:
Drs. Mayer and Tanya notified of pt's ?excessive sleeping, IV fluids started per Dr. Mayer at 11:45.
Original Note:
Pt able to state she was hungry at 09:00 but continued to sleep soundly until 13:00 when she was able to eat and take her scheduled meds. Pt with garbled speech at times but oriented and saying 'what is my malady? Can I get better?'. Pt seen by
, plan to continue current medications. Pt later very tearful reporting back pain which she stated would improve 'with walking'. Pt walked to waiting room and sat for over an hour, back pain resolved. Pt resumed sleeping at @4pm, able to
give a response to questions. Pt spends alot of time with her eyes closed. Pt's son and daughter at her bedside. Pt is a fall risk, fall precautions in place.
--- NOTE | 2024-10-27 20:48 | PTCARENOTE ---
pt received at change of shift. pt seen and assessed in room with son at bedside. pt AOx1 to self at the moment. sitting comfortably in chair. tele reading afib w occ. v pacing. no complaints of pain at this time. NSS at 70ml/hr. this RN explained
plan of care to family, family verbalizes understanding. bed and chair alarm activated, call olvera within reach. continuing to monitor at this time.
[2024-10-28] VITALS (10 sets, daily range): BP systolic 133–172; BP diastolic 57–95; PULSE 69–71; O2SAT 100; BMI 22.1
[2024-10-28] MEDS: TYLENOL PO ×3 (00:05→23:58)
[2024-10-28] MEDS: TYLENOL 650 MG PO ×4 (06:02→20:11)
[2024-10-28] MEDS: LIDOCAINE 4% PATCH 2 PATCH TOPICAL (07:20)
[2024-10-28] MEDS: NEURONTIN 300 MG PO ×3 (07:21→21:39)
[2024-10-28] MEDS: KEPPRA 500 MG PO ×2 (07:21→20:10)
[2024-10-28] MEDS: ELIQUIS 2.5 MG PO ×2 (07:22→20:10)
[2024-10-28] MEDS: COZAAR 50 MG PO ×2 (07:22→20:10)
[2024-10-28] MEDS: NSS (PRESERVATIVE FREE) 10 ML IV (07:22)
[2024-10-28] MEDS: PROTONIX IV 40 MG IV (07:22)
--- NOTE | 2024-10-28 07:37 | PTCARENOTE ---
Assumed care. Patient sitting on side of bed, daughter at bedside. She is alert to self, knows she is in a hospital, oriented to time, following commands, cooperative, pleasant. Aquacel dressing left chest wall. Right calf pain, Lidoderm placed
there and chronic lower back pad another patch placed. BP 162/95, HR 60-70's. Meds given whole in applesauce, bed alarm audible
[2024-10-28 11:03] LABS: % Basophils 0.6 % (0-2); % Eosinophils 4.1 % (0-6); % Immature Granulocytes 0.2 % (0-0.5); % Lymphocytes 21.5 % (20.5-51.1); % Monocytes 10.1 % (1.7-9.3); % Neutrophils 63.5 % (42.2-75.2); Absolute Eosinophils 0.2 10^3/uL (0-0.7); Absolute Monocytes 0.5 10^3/uL (0.1-0.6); Absolute Neutrophils 3.1 10^3/uL (1.4-6.5); Hematocrit 37.9 % (37.0-47.0); Hemoglobin 12.2 g/dL (12.0-16.0); Mean Corp Hgb Conc. 32.2 g/dL (33.0-37.0); Mean Corpuscular Hgb 31.4 pg (27.0-31.0); Mean Corpuscular Volume 97.7 fL (81.0-99.0); Mean Platelet Volume 10.2 fL (7.4-10.4); Nucleated Red Blood Cells % 0 %; Platelet Count 186 10^3/uL (130-400); Red Blood Cell Count 3.88 10^6/uL (4.20-5.40); Red Cell Dist. Width 14.3 % (11.5-14.5); White Blood Cell Count 4.8 10^3/uL (4.8-10.8)
[2024-10-28 11:17] LABS: Blood Urea Nitrogen 19 mg/dl (7-17); Calcium 8.4 mg/dl (8.4-10.2); Carbon Dioxide 28 mmol/L (22-30); Chloride 107 mmol/L (98-107); Estimated Creatinine Clearance 34 ml/min; Glucose 113 mg/dl (70-99); Potassium 4.8 mmol/L (3.5-5.1); Sodium 141 mmol/L (135-145); eGFR > 60.00
--- NOTE | 2024-10-28 12:51 | PTCARENOTE ---
Patient awake and alert siting in the chair, family at bedside, lunch ordered. Appetite good today.
--- NOTE | 2024-10-28 13:28 | W.PN.HOSP.TC ---
Today's Communication/Plan
-
Monitor vital signs see plan
Monitor mental status closely
Continue with gabapentin
PT/OT
Discussed with son and daughter at bedside, discharge planning
Discussed with neurology, will keep Keppra. Patient will follow-up with neurology outpatient
Assessment / Plan
Assessment / Plan
Physical Exam
General: No pallor, cyanosis, or jaundice.
HEENT: Normocephalic atraumatic
NECK: Supple. No JVD Carotid Bruits
RESPIRATORY: Lungs clear to auscultation. No crackles wheezes stridor
CVS: Irregularly Irregular. No murmur, rub or gallop.
ABDOMEN: Soft, non-tender. No distension. BS+/normal.
EXTREMITIES: No peripheral cyanosis or edema.
SEWING MACHINE OPERATOR PLASTIC ZIPPER:AAOx2-3
IMPRESSION:
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 Hospital course complicated with repeat Rapid Response
calls for episodes of unresponsiveness, shaking, unclear etiology. No acute findings CT Head or CTA Head and Neck. EEG was negative for seizure activity. Patient evaluated by Psychiatry and Neurology consults. Following 2nd rapid response,
patient was transferred from Cardiology to Hospitalist service for further evaluation and management.
PLAN:
#Episodes Unresponsiveness/Shaking unclear etiology, suspect multifactorial secondary to dementia, TME exacerbated by Medications (benzos, antipsychotics, anticholinergic) and some component of hospital-acquired delirium
#History Depression/Depression
Per discussion with patient's son Royal, relationship executive, confusion episodes first started following laminectomy lumbar stenosis Aug 2024, around the same time patient was started on methocarbamol (very anticholinergic, in combination with pt's home
medications paroxetine and bedtime ativan, suspect polypharmacy likely triggered confusion episodes/delirium)
As per discussion with Neurology, Low suspicion seizure activity, possible hyperactive delirium (treatable with ativan but also carries a risk of worsening delirium overall)
Would continue to hold scheduled ativan (reportedly was on 0.25 mg HS previously, very low dose, unlikely to trigger withdrawal sz's, has been off this medication for a few days)
Psych eval appreciated
Neuro eval appreciated hold paroxetine and Seroquel given concern possible Lewy Body Dementia, started on low dose Keppra for possible sz d/o. Discussed with cardiology and they want to keep patient on Keppra until patient sees them outpatient and
they will wean off Keppra once continuous EEG normal
PT/OT eval appreciated SNF rehab but patient may do better in a familiar event Home with 24/ care if possible.
Limit external stimuli as much as possible.
cont IVF gentle hydration for now pending consistent improvement in oral intake/alertness
#Tachybrady syndrome s/p ppm
Cardio eval appreciated
#persistent vs permanent afib
Eliquis resumed, cont
#HFpEF
appears euvolemic at this time
Given poor oral intake d/t confusion/encephalopathy/delirium, Lasix discontinued, monitor off
daily weights I/O
#HTN
cont home Losartan
#Lumbar stenosis Laminectomy Aug 2024
Possible pain contributing to delirium
cont home Gabapentin dose increased to 300 mg TID as per Neuro
Methocarbamol not given here (patient's own med), recommend discontinuing given anticholinergic concerns possible contribution delirium as above
Notably, the start of methocarbamol also coincides with the start of patient's ''- started following Laminectomy as per patient's son Royal
Scheduled Tylenol Q4HWA
Lidocaine patches lower back
Full Code
GI ppx Protonix
DVT prophylaxis Eliquis
Discussed with patient's daughter Marissa and patient's son Royal
I spent a total of 52 minutes with the patient or on the floor. More than 50% of this time involved counseling and coordination of care.
Anticipated Discharge: Within 24 hours
Subjective/Interval History
-
Date of Service: October 28, 2024
denies nausea
Objective Data
-
Labs:
Laboratory Results
10/28/24
10:52
WBC 4.8
Hgb 12.2
Hct 37.9
Plt Count 186
Sodium 141
Potassium 4.8
Chloride 107
Carbon Dioxide 28
BUN 19 H
Creatinine 0.8
Glucose 113 H
Calcium 8.4
Vital Signs:
Vital Signs
Temp Pulse Resp BP Pulse Ox
97.3 F 65 18 133/73 96
10/28/24 12:02 10/28/24 09:45 10/28/24 12:02 10/28/24 09:16 10/28/24 12:02
I&O
10/27/24 10/28/24 10/29/24
06:59 06:59 06:59
Intake Total 490 / 490 850 / 850
Balance 490 / 490 850 / 850
[2024-10-28] MEDS: NSS 1000 IV (13:38)
--- NOTE | 2024-10-28 16:47 | PTCARENOTE ---
Patient tearful, back pain. Walking seems to help with the pain. Patient walked to the lounge, Tylenol and Neurontin given. Patient is awake and alert to time and place, forgetful, sleepy but arouses easily. Voiding in the bathroom during the day.
Eating and drinking well, family feeding her all her meals during the day and very attentive to he needs. Medications given in applesauce. Left chest wall Aquacel dressing dry and intact, A-FIB some V-Pacing HR in the 60's.
--- NOTE | 2024-10-28 17:15 | PTCARENOTE ---
IV fluids completed, no need to renew, discussed with Dr. Goldman. IV capped
[2024-10-29] MEDS: TYLENOL 650 MG PO ×4 (01:19→20:57)
[2024-10-29] MEDS: TYLENOL PO ×2 (03:18→12:02)
[2024-10-29 03:29] VITALS: BP 154/72
[2024-10-29 03:49] LABS: % Basophils 0.7 % (0-2); % Eosinophils 3.5 % (0-6); % Immature Granulocytes 0.4 % (0-0.5); % Lymphocytes 22.7 % (20.5-51.1); % Monocytes 10.9 % (1.7-9.3); % Neutrophils 61.8 % (42.2-75.2); Absolute Eosinophils 0.2 10^3/uL (0-0.7); Absolute Monocytes 0.5 10^3/uL (0.1-0.6); Absolute Neutrophils 2.8 10^3/uL (1.4-6.5); Hematocrit 35.3 % (37.0-47.0); Hemoglobin 11.7 g/dL (12.0-16.0); Mean Corp Hgb Conc. 33.1 g/dL (33.0-37.0); Mean Corpuscular Hgb 31.3 pg (27.0-31.0); Mean Corpuscular Volume 94.4 fL (81.0-99.0); Nucleated Red Blood Cells % 0 %; Platelet Count 161 10^3/uL (130-400); Red Blood Cell Count 3.74 10^6/uL (4.20-5.40); Red Cell Dist. Width 13.8 % (11.5-14.5); White Blood Cell Count 4.6 10^3/uL (4.8-10.8)
[2024-10-29 04:08] LABS: Blood Urea Nitrogen 24 mg/dl (7-17); Calcium 8.8 mg/dl (8.4-10.2); Carbon Dioxide 27 mmol/L (22-30); Chloride 107 mmol/L (98-107); Estimated Creatinine Clearance 34 ml/min; Glucose 102 mg/dl (70-99); Potassium 4.5 mmol/L (3.5-5.1); Sodium 140 mmol/L (135-145); eGFR > 60.00
[2024-10-29 06:00] VITALS: BMI 22.6
[2024-10-29 07:01] VITALS: BP 186/93
[2024-10-29] MEDS: ELIQUIS 2.5 MG PO ×2 (08:02→20:56)
[2024-10-29] MEDS: PROTONIX 40 MG PO (08:02)
[2024-10-29] MEDS: NEURONTIN 300 MG PO ×3 (08:02→20:57)
[2024-10-29] MEDS: KEPPRA 500 MG PO ×2 (08:03→20:56)
[2024-10-29] MEDS: COZAAR 50 MG PO ×2 (08:03→20:55)
[2024-10-29] MEDS: LIDOCAINE 4% PATCH 2 PATCH TOPICAL (08:03)
--- NOTE | 2024-10-29 08:54 | PTCARENOTE ---
Assumed care. Patient AAO x3 this morning. She is having right calf pain, walked to the [facility] with some relief. Tylenol, Neurontin, Lidoderm patches applied. VSS. Aquacel dressing left chest wall dry and intact. Call olvera in reach
--- NOTE | 2024-10-29 10:51 | W.PN.HOSP.TC ---
Addendum entered and electronically signed by Kenji Goldman MD 10/29/24 13:12:
Prior to discharge, patient started having hallucinations again and started yelling in Bruneian. Daughter at bedside reported that patient started speaking in Bruneian and then later spoke to her sister over the phone who understands Bruneian. Patient
was claiming 'seeing people'. Per family at bedside similar episodes has had happened in the past. From neurology standpoint, this appears to be component of Lewy body dementia and will benefit from psychiatry evaluation. reconsulted psych
Addendum entered and electronically signed by Kenji Goldman MD 10/29/24 11:01:
Time of discharge 39 minutes
Original Note:
Today's Communication/Plan
-
Monitor vital signs see plan
Continue with Keppra
Continue gabapentin
Discussed with family at bedside, discharge today. Family prefers home
Patient to follow-up with PCP, neurology and cardiology outpatient
Assessment / Plan
Assessment / Plan
Physical Exam
General: No pallor, cyanosis, or jaundice.
HEENT: Normocephalic atraumatic
NECK: Supple. No JVD Carotid Bruits
RESPIRATORY: Lungs clear to auscultation. No crackles wheezes stridor
CVS: Irregularly Irregular. No murmur, rub or gallop.
ABDOMEN: Soft, non-tender. No distension. BS+/normal.
EXTREMITIES: No peripheral cyanosis or edema.
SENIOR CLINICIAN:AAOx2-3
IMPRESSION:
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 Hospital course complicated with repeat Rapid Response
calls for episodes of unresponsiveness, shaking, unclear etiology. No acute findings CT Head or CTA Head and Neck. EEG was negative for seizure activity. Patient evaluated by Psychiatry and Neurology consults. Following 2nd rapid response,
patient was transferred from Cardiology to Hospitalist service for further evaluation and management.
PLAN:
#Episodes Unresponsiveness/Shaking unclear etiology, suspect multifactorial secondary to dementia, TME exacerbated by Medications (benzos, antipsychotics, anticholinergic) and some component of hospital-acquired delirium
#History Depression/Depression
Mental status has been markedly improving
Per discussion with patient's son Royal, care nurse rn, confusion episodes first started following laminectomy lumbar stenosis Aug 2024, around the same time patient was started on methocarbamol (very anticholinergic, in combination with pt's home
medications paroxetine and bedtime ativan, suspect polypharmacy likely triggered confusion episodes/delirium)
As per discussion with Neurology, Low suspicion seizure activity, possible hyperactive delirium (treatable with ativan but also carries a risk of worsening delirium overall)
Would continue to hold scheduled ativan (reportedly was on 0.25 mg HS previously, very low dose, unlikely to trigger withdrawal sz's, has been off this medication for a few days)
Psych eval appreciated
Neuro eval appreciated hold paroxetine and Seroquel given concern possible Lewy Body Dementia, started on low dose Keppra for possible sz d/o. Discussed with neurology and they want to keep patient on Keppra until patient sees them outpatient and
they will wean off Keppra once continuous EEG normal. Patient has appointment with her neurologist tomorrow
PT/OT eval appreciated SNF rehab but patient may do better in a familiar event Home with 24/7 care if possible. Family chose to go home with home health
Limit external stimuli as much as possible.
#Tachybrady syndrome s/p ppm
Cardio eval appreciated
cardiology for instruction regarding pacemaker
#persistent vs permanent afib
Eliquis resumed, cont
#HFpEF
appears euvolemic at this time
Given poor oral intake d/t confusion/encephalopathy/delirium, Lasix discontinued, monitor off
daily weights I/O
#HTN
cont home Losartan
#Lumbar stenosis Laminectomy Aug 2024
Possible pain contributing to delirium
cont home Gabapentin dose increased to 300 mg TID as per Neuro
Methocarbamol not given here (patient's own med), recommend discontinuing given anticholinergic concerns possible contribution delirium as above
Notably, the start of methocarbamol also coincides with the start of patient's 'sunding'- started following Laminectomy as per patient's son Royal
Scheduled Tylenol Q4HWA
Lidocaine patches lower back
Full Code
GI ppx Protonix
DVT prophylaxis Eliquis
Discussed with patient's daughter Marissa and patient's son Royal
Anticipated Discharge: Today
Subjective/Interval History
-
Date of Service: October 29, 2024
denies pain
Objective Data
-
Labs:
Laboratory Results
10/29/24
03:23
WBC 4.6 L
Hgb 11.7 L
Hct 35.3 L
Plt Count 161
Sodium 140
Potassium 4.5
Chloride 107
Carbon Dioxide 27
BUN 24 H
Creatinine 0.8
Glucose 102 H
Calcium 8.8
Vital Signs:
Vital Signs
Temp Pulse Resp BP Pulse Ox
96.5 F L 70 16 186/93 100
10/29/24 07:05 10/29/24 08:00 10/29/24 07:05 10/29/24 07:01 10/29/24 07:05
I&O
10/28/24 10/29/24 10/30/24
06:59 06:59 06:59
Intake Total 850 / 850 300 / 300
Balance 850 / 850 300 / 300
--- NOTE | 2024-10-29 11:00 | W.DCSUMMARY ---
Discharge Summary
Discharge Data
Date of Admission: 10/26/24
Date of Discharge: 10/30/24
-
Pending Results: No
Hospital Course
89-year-old female with history of essential tremors, CHF, hypertension, hyperlipidemia, TIA, atrial fibrillation, chronic back pain, lumbar stenosis s/p laminectomy, tachybradycardia syndrome, agitation with intermittent hallucination came to the
hospital for pacemaker placement secondary to tachybradycardia syndrome. Hospital course was complicated with multiple episodes of unresponsiveness, shaking and intermittent hallucinations. CT head was done which did not show any signs of acute
CVA. Patient was also seen by neurology and psychiatry throughout hospitalization. Neurology thought patient symptoms could likely be secondary to possibility of Lewy body dementia. Given multiple episodes, neurology started patient on Keppra
with concern of possible seizure-like activity. Neurology wanted patient to follow-up with them closely outpatient with longer duration EEG and they will consider tapering Keppra. Initially giving her confusion benzos, antipsychotic were stopped.
Later on patient developed agitation and hallucination and was seen by psychiatry again and was put back on Ativan as needed, Paxil and Seroquel however with lower dose. Patient was also evaluated by PT who recommended SNF however family decided to
take patient home. Regarding her tachybradycardia syndrome patient did got Pacemaker on this hospitalization. Cardiology also recommended to hold Lasix. Once patient symptoms continue to improve, she was then discharged home with instructions to
follow-up with all her physicians outpatient.
Discharge Plan
-
Patient Disposition: Home with Home Care
Discharge Diagnosis/Procedures: Change in mental status suspect multifactorial secondary to toxic metabolic encephalopathy, acute delirium and possible underlying Lewy Body dementia
Tachybradycardia syndrome status post pacemaker
Atrial fibrillation
Pacemaker implant
Condition: Fair
Diet: Low Cholesterol
Activity: With assistance and As tolerated
Driving Restrictions: No driving
Stand Alone Forms: [facility] - Implanted Device
Referrals:
[facility] [Provider Group] - 11/01/24 11:20 am (Cardiology followup appointment)
[facility] [Outside] - in one to two days
(RN/PT/OT/Aide/SW
FAX- [phone])
Srinivasa Mata MD [Active] -
Chioma Martínez MD [Active] -
Rylee Haq DO [Family Provider] - in less than 1 week
Prescriptions:
New
lidocaine 4 % Adhesive Patch,Medicated
2 patch topical DAILY Qty: 30 0RF
levetiracetam 500 mg Tablet
500 mg PO BID Qty: 60 0RF
pantoprazole 40 mg Tablet,Delayed Release (Dr/Ec)
40 mg PO DAILY Qty: 30 0RF
gabapentin 300 mg Capsule
300 mg PO TID Qty: 90 0RF
quetiapine 25 mg Tablet
12.5 mg PO HS 30 Days Qty: 15 0RF
paroxetine HCl 10 mg Tablet
5 mg PO DAILY 30 Days Qty: 15 0RF
lorazepam 0.5 mg Tablet
0.25 mg PO Q6HPRN PRN (Reason: agitation) Qty: 0 0RF
Continued
multivitamin Tablet
1 tab PO NOON
losartan 50 mg Tablet
50 mg PO BID
Eliquis 2.5 mg Tablet
2.5 mg PO BID
calcium carbonate 500 mg calcium (1,250 mg) Tablet
500 mg PO DAILY
acetaminophen 500 mg Tablet
1,000 mg PO Q6H PRN (Reason: pain)
Held
furosemide 20 mg Tablet
20 mg PO DAILY
Hold Instructions: Restart when okay with cardiology
Discontinued
paroxetine HCl 10 mg Tablet
10 mg PO DAILY
methocarbamol 500 mg Tablet
500 mg PO HS
gabapentin 100 mg Capsule
200 mg PO HS
quetiapine [Seroquel] 25 mg Tablet
25 mg PO HS
Discharge Orders:
Discharge Patient (As Directed); Ordered 10/30/24
Ordered By: Kenji Goldman
Care Plan Goals
Care Plan Goals:
Problem: Readiness for enhanced knowledge related to diagnosis and treatment plan
Goal: Understand your diagnosis and treatment plan needs, including medications if applicable.
Instructions: Know your diagnosis, underlying causes and treatment plan options, including medications if applicable. Consult with your health care team to learn about your diagnosis and treatment plan, including medications if applicable.
Discharge Date and Time
Discharge Date/Time: 10/30/24 14:45
Print Language: CENTRAL AFRICAN
[2024-10-29 11:03] VITALS: BP 162/82
--- NOTE | 2024-10-29 11:15 | PTCARENOTE ---
Addendum entered by Wade Blair RN 10/29/24 12:05:
Patient was sleeping soundly, awoke screaming, speaking burmese, periodically speaking Wallisian 'there are people here' hallucinating that people are trying to bury her and they did it twice she said, intermittently screaming. She is following
commands, moving all extremities. Contacted Neurology, no new orders received, contacted Dr. Goldman
Original Note:
Patient was sleeping soundly, awoke screaming, speaking burmese, periodically speaking Wallisian 'there are people here', following commands. Contacted Neurology, no new orders received, contacted Dr. Goldman
--- NOTE | 2024-10-29 12:04 | PTCARENOTE ---
Patient calm, assisted to the commode, voided, now asleep. Mery consulted, family updated
--- NOTE | 2024-10-29 15:25 | PTCARENOTE ---
Patient trying to leave, agitated, 'I want to get the heck out of here, I want to go home, get out my way' Family in the room helping keep patient in the room. Page sent to Dr. Goldman and Dr. Mata. Dr Mata will see patient now.
--- NOTE | 2024-10-29 15:55 | CM ---
spoke with pt, daughter and son, family wants to take pt home when medically stable, they want [facility] with RN,PT,OT,Aide and SW. referral faxed.
--- NOTE | 2024-10-29 15:57 | CM ---
information given to family on [facility] on aging and private duty companions
--- NOTE | 2024-10-29 16:46 | W.PN.UPDATE ---
Update Note
Progress Note Update
Psychiatry asked to follow up today, pt was planned for discharge, but became agitated, yelling in German, reportedly saying she was 'seeing people'. Pt seen sitting in chair, alert, awake, irritable, stating she wants to go home. Pt then withdrew
and sat silently with her eyes closed. Spoke with son and dtr, who report recent episodes of 'passing out,' although pt noted to be aware during these periods here. Reviewed Neurology notes, suspecting possible Lewy Body dementia, although this
afternoon there is no resting tremor evident. Son expressed concern about medications being stopped- Paxil and Seroquel were apparently discontinued. Pt was on Paxil for 10 years per son, at 10 mg per day. Seroquel dose was 25 mg HS.
Imp: Unspecified Anxiety; TME- resolved, R/o dementia, possible discontinuation syndrome from above medications
Rec: Tapering doses of Paxil and Seroquel; Ativan 0.25 mg prn acute anxiety
Outpatient med mgt/ Neurology f/u
Will follow
--- NOTE | 2024-10-29 17:07 | PTCARENOTE ---
Patient calm now, in chair. Son at bedside, lights dimmed. Took pills with applesauce.
[2024-10-29 17:41] VITALS: BP 163/65
[2024-10-29 20:55] VITALS: BP 155/66
[2024-10-29] MEDS: SEROQUEL 12.5 MG PO (20:58)
[2024-10-29 22:47] VITALS: BP 159/72
--- NOTE | 2024-10-29 23:27 | PTCARENOTE ---
Received patient at change of shift. V paced on the monitor, HR In the 70s. L chest dressing CDI. Pt ambulating in hallway with walker and an assist. Discussed medication changes and new dosages with patient's family, they verbalize understanding.
No complaints from pt at this time, call olvera within reach.
[2024-10-30] MEDS: TYLENOL PO ×2 (00:46→04:07)
[2024-10-30 02:26] VITALS: BMI 22.4
[2024-10-30 03:27] LABS: % Basophils 0.8 % (0-2); % Eosinophils 3.2 % (0-6); % Immature Granulocytes 0.2 % (0-0.5); % Lymphocytes 29.1 % (20.5-51.1); % Monocytes 9.5 % (1.7-9.3); % Neutrophils 57.2 % (42.2-75.2); Absolute Eosinophils 0.2 10^3/uL (0-0.7); Absolute Lymphocytes 1.5 10^3/uL (1.2-3.4); Absolute Monocytes 0.5 10^3/uL (0.1-0.6); Hemoglobin 11.9 g/dL (12.0-16.0); Mean Corp Hgb Conc. 33.1 g/dL (33.0-37.0); Mean Corpuscular Hgb 31.6 pg (27.0-31.0); Mean Corpuscular Volume 95.7 fL (81.0-99.0); Mean Platelet Volume 10.2 fL (7.4-10.4); Nucleated Red Blood Cells % 0 %; Platelet Count 186 10^3/uL (130-400); Red Blood Cell Count 3.76 10^6/uL (4.20-5.40); Red Cell Dist. Width 13.9 % (11.5-14.5); White Blood Cell Count 5.3 10^3/uL (4.8-10.8)
[2024-10-30 03:39] VITALS: BP 149/65
[2024-10-30 03:41] LABS: Blood Urea Nitrogen 23 mg/dl (7-17); Calcium 9.2 mg/dl (8.4-10.2); Carbon Dioxide 30 mmol/L (22-30); Chloride 103 mmol/L (98-107); Estimated Creatinine Clearance 30 ml/min; Glucose 103 mg/dl (70-99); Potassium 4.2 mmol/L (3.5-5.1); Sodium 140 mmol/L (135-145); eGFR > 60.00
[2024-10-30 07:29] VITALS: BP 174/80
[2024-10-30] MEDS: ELIQUIS 2.5 MG PO (07:31)
[2024-10-30] MEDS: COZAAR 50 MG PO (07:31)
[2024-10-30] MEDS: PAXIL 5 MG PO (07:31)
[2024-10-30] MEDS: KEPPRA 500 MG PO (07:31)
[2024-10-30] MEDS: TYLENOL 650 MG PO ×2 (07:31→11:48)
[2024-10-30] MEDS: NEURONTIN 300 MG PO (07:31)
[2024-10-30] MEDS: PROTONIX 40 MG PO (07:31)
[2024-10-30] MEDS: LIDOCAINE 4% PATCH 2 PATCH TOPICAL (07:32)
--- NOTE | 2024-10-30 08:09 | PTCARENOTE ---
Rec'd pt at handoff. Awake, alert, oriented to self and time. Tele- Afib w/ occ. V-pacing 60-70s. Pt c/o chronic R calf pain and R hip pain. Pt repositioned on L side and reports relief. AM meds administered per order. Pt swallowed meds w/
applesauce. L chest wall aquacel c/d/i. Discussed plan with daughter; verbalized understanding. Call olvera within reach.
[2024-10-30 09:47] VITALS: BP 154/62
--- NOTE | 2024-10-30 11:11 | W.PN.HOSP.TC ---
Today's Communication/Plan
-
Monitor vital signs
see plan
No further hallucinations, continue with decreased dose of Paxil and Seroquel
Discharge today
Patient will follow-up with PCP, cardiology, neurology and psychiatry outpatient
Time of discharge 39 minutes
Assessment / Plan
Assessment / Plan
Physical Exam
General: No pallor, cyanosis, or jaundice.
HEENT: Normocephalic atraumatic
NECK: Supple. No JVD Carotid Bruits
RESPIRATORY: Lungs clear to auscultation. No crackles wheezes stridor
CVS: Irregularly Irregular. No murmur, rub or gallop.
ABDOMEN: Soft, non-tender. No distension. BS+/normal.
EXTREMITIES: No peripheral cyanosis or edema.
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
IMPRESSION:
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 Hospital course complicated with repeat Rapid Response
calls for episodes of unresponsiveness, shaking, unclear etiology. No acute findings CT Head or CTA Head and Neck. EEG was negative for seizure activity. Patient evaluated by Psychiatry and Neurology consults. Following 2nd rapid response,
patient was transferred from Cardiology to Hospitalist service for further evaluation and management.
PLAN:
#Episodes Unresponsiveness/Shaking unclear etiology, suspect multifactorial secondary to dementia, TME exacerbated by Medications (benzos, antipsychotics, anticholinergic) and some component of hospital-acquired delirium
#History Depression/Depression
Mental status has been markedly improving
Per discussion with patient's son Royal, early learning teacher, confusion episodes first started following laminectomy lumbar stenosis Aug 2024, around the same time patient was started on methocarbamol (very anticholinergic, in combination with pt's home
medications paroxetine and bedtime ativan, suspect polypharmacy likely triggered confusion episodes/delirium)
As per discussion with Neurology, Low suspicion seizure activity, possible hyperactive delirium (treatable with ativan but also carries a risk of worsening delirium overall)
Would continue to hold scheduled ativan (reportedly was on 0.25 mg HS previously, very low dose, unlikely to trigger withdrawal sz's, has been off this medication for a few days)
Psych eval appreciated
Neurology thinks patient has Lewy Body Dementia, started on low dose Keppra for possible sz d/o. Discussed with neurology and they want to keep patient on Keppra until patient sees them outpatient and they will wean off Keppra once continuous EEG
normal. Patient has appointment with her neurologist tomorrow
Initially Paxil and Seroquel was held, had an episode of agitation with hallucination on 10/29. Psychiatry now recommending decrease dose of Paxil and Seroquel which has been added. No further symptoms. Family and patient wants to go home
PT/OT eval appreciated SNF rehab but patient may do better in a familiar event Home with 24/7 care if possible. Family chose to go home with home health
Limit external stimuli as much as possible.
#Tachybrady syndrome s/p ppm
Cardio eval appreciated
cardiology for instruction regarding pacemaker
#persistent vs permanent afib
Eliquis resumed, cont
#HFpEF
appears euvolemic at this time
Given poor oral intake d/t confusion/encephalopathy/delirium, Lasix discontinued, monitor off
daily weights I/O
#HTN
cont home Losartan
#Lumbar stenosis Laminectomy Aug 2024
Possible pain contributing to delirium
cont home Gabapentin dose increased to 300 mg TID as per Neuro
Methocarbamol not given here (patient's own med), recommend discontinuing given anticholinergic concerns possible contribution delirium as above
Notably, the start of methocarbamol also coincides with the start of patient's ''- started following Laminectomy as per patient's son Royal
Scheduled Tylenol Q4HWA
Lidocaine patches lower back
Full Code
GI ppx Protonix
DVT prophylaxis Eliquis
Discussed with patient's daughter Marissa
Anticipated Discharge: Today
Subjective/Interval History
-
Date of Service: October 30, 2024
No further hallucination
Objective Data
-
Labs:
Laboratory Results
10/30/24
02:48
WBC 5.3
Hgb 11.9 L
Hct 36.0 L
Plt Count 186
Sodium 140
Potassium 4.2
Chloride 103
Carbon Dioxide 30
BUN 23 H
Creatinine 0.9
Glucose 103 H
Calcium 9.2
Vital Signs:
Vital Signs
Temp Pulse Resp BP Pulse Ox
98.4 F 69 16 154/62 99
10/30/24 07:44 10/30/24 09:47 10/30/24 07:44 10/30/24 09:47 10/30/24 07:44
I&O
10/29/24 10/30/24 10/31/24
06:59 06:59 06:59
Intake Total 300 / 300 240 / 240
Output Total 2099 / 2099
Balance 300 / 300 -1860 / -1860
[2024-10-30 11:49] VITALS: BP 114/44
--- NOTE | 2024-10-30 12:19 | CM ---
CM following for DC planning needs.
Met w/ patient, son and dtr. at bedside.
Pt. seen ambulating the halls w/ son + RW.
Pt. for DC to HOME today. Son, dtr. agreeable to this.
Plan is for home w/ [facility] VN. Referral made, accepted. Updated on DC date.
Plan: DC to home w/ family + [facility] VN
Fax- [phone]
--- NOTE | 2024-10-30 14:25 | PTCARENOTE ---
IV and tele removed. Discharge instructions reviewed w/ daughter and son. Verbalizes understanding. Belongings collected and sent home w/ pt. Escorted via WC w/ staff assist. Discharged to home w/ family and VN services.
== END 2024-10-30 14:45 | disposition home health service (06) | DRG 41 ==
LOC: IVU 07:49
PROVIDERS: Internal Medicine Cardiovascular Disease; Nurse Practitioner; Nurse Practitioner Adult Health; Nurse Practitioner Gerontology; ADMITTING PHYSICIAN Internal Medicine; ATTENDING PHYSICIAN Internal Medicine; CONSULT PHYSICIAN Psychiatry & Neurology Neurology; CONSULT PHYSICIAN Psychiatry & Neurology Psychiatry; FAMILY PHYSICIAN Family Medicine
PROC: 0JH604Z Insertion of Pacemaker, Single Chamber into Chest Subcutaneous Tissue and Fascia, Open Approach (ICD-10-PCS; 2024-10-23)
PROC: 02HK3JZ Insertion of Pacemaker Lead into Right Ventricle, Percutaneous Approach (ICD-10-PCS; 2024-10-23)
DX: G92.8 Other toxic encephalopathy (principal); F02.82 Dementia in other diseases classified elsewhere, unspecified severity, with psychotic disturbance; F05 Delirium due to known physiological condition; I48.21 Permanent atrial fibrillation; I50.32 Chronic diastolic (congestive) heart failure; I49.5 Sick sinus syndrome; I11.0 Hypertensive heart disease with heart failure; R55 Syncope and collapse; G20.C Parkinsonism, unspecified; G31.83 Neurocognitive disorder with Lewy bodies; G25.0 Essential tremor; Z86.73 Personal history of transient ischemic attack (TIA), and cerebral infarction without residual deficits; Z79.01 Long term (current) use of anticoagulants
CPT/HCPCS: 33207; 36600; 70450; 70496; 70498; 71045; 80048; 80053; 81003; 82607; 82728; 82805; 82962; 83540; 83735; 84100; 84443; 84550; 85025; 85027; 85652; 85730; 86140; 93005; 93970; 95816; 97116; 97163; 97167; 97530; 97535; C1769; C1786; C1887; C1892; C1898; Q9967